=== PATIENT | female | born 1975 | race Caucasian/White ===

== ENCOUNTER 2016-07-17 09:46 | Emergency (ER) | payer MEDICAID, OTHER ==
--- NOTE | 2016-07-17 10:36 | REP ---
Clinical: Chest pain . Comparison: None . Findings: The mediastinum and cardiac silhouette are stable and within normal limits for portable technique. The lung reyes are clear without acute consolidation, effusion, or pneumothorax. Skeletal structures are intact. Impression: Normal portable chest x-ray Signed by Derek Wang MD 07/17/2016 10:28 A
[2016-07-17 10:52] LABS: BASO # 0.1 K/mm3 (0.0-0.2); BASO % 0.8 % (0.0-1.0); EOS # 0.1 K/mm3 (0.0-0.50); EOS % 1.4 % (0.0-3.0); LARGE UNSTAINED CELL # 0.1 K/mm3 (0.0-0.4); LARGE UNSTAINED CELL % 1.1 % (0.0-4.0); LYMPH # 1.7 K/mm3 (1.5-4.5); LYMPH % 21.7 % (24.0-44.0); MEAN CORPUSCULAR HEMOGLOBIN 21.8 pg (27.0-33.0); MEAN CORPUSCULAR HGB CONC 30.2 g/dl (32.0-36.5); MEAN CORPUSCULAR VOLUME 72.1 fl (80.0-96.0); MONO # 0.4 K/mm3 (0.0-0.8); MONO % 5.3 % (0.0-5.0); NEUTROPHILS # 5.3 K/mm3 (1.8-7.7); NEUTROPHILS % 69.8 % (36.0-66.0); PLATELET COUNT, AUTOMATED 243 k/mm3 (150-450); RED CELL DISTRIBUTION WIDTH 17.6 % (11.5-14.5); WHITE BLOOD COUNT 7.6 K/mm3 (4.0-10.0)
[2016-07-17 11:02] LABS: ADD MORPHOLOGY? YES
[2016-07-17 11:03] LABS: ALBUMIN 3.4 GM/DL (3.2-5.2); ALBUMIN/GLOBULIN RATIO 0.94 (1.00-1.93); ALKALINE PHOSPHATASE 93 U/L (45-117); ALT/SGPT 26 U/L (12-78); ANION GAP 10 MEQ/L (8-16); AST/SGOT 23 U/L (15-37); BILIRUBIN,DIRECT 0.1 MG/DL (0.0-0.2); BILIRUBIN,TOTAL 0.6 MG/DL (0.2-1.0); BLOOD UREA NITROGEN 16 MG/DL (7-18); CALCIUM LEVEL 8.8 MG/DL (8.5-10.1); CARBON DIOXIDE LEVEL 26 MEQ/L (21-32); CHLORIDE LEVEL 107 MEQ/L (98-107); CREATININE FOR GFR 0.64 MG/DL (0.55-1.02); GLOMERULAR FILTRATION RATE > 60.0 (>58); GLUCOSE, FASTING 114 MG/DL (70-105); POTASSIUM SERUM 4.6 MEQ/L (3.5-5.1); SODIUM LEVEL 143 MEQ/L (136-145)
[2016-07-17 11:05] LABS: ANISOCYTOSIS 1+; HYPOCHROMASIA 3+; MICROCYTOSIS 2+
--- NOTE | 2016-07-17 13:02 | EDDOCDS ---
Nurse's Notes [facility] Name: Rachelle Moran Age: 41 yrs Sex: Female : 1975 Arrival Date: 07/17/2016 Time: 09:46 Bed 10 Private MD: Diagnosis: Epilepsy and recurrent seizures Presentation: 07/17 09:48 Presenting complaint: EMS states: states was in break room at work, noticed some slight ml6 shaking and that she became rigid, states that she was AAOx3 when EMS arrived. Adult Sepsis Screening: The patient does not have new or worsening altered mentation. Patient's respiratory rate is less than 22. Systolic blood pressure is greater than 100. Patient has a qSOFA score of 0- Negative Sepsis Screen. 09:51 Presenting complaint: EMS states: Patient at work, staff called EMS for possible js13 seizure due to patient going rigid and shaking. Suicide/Homicide risk assessment- the patient denies having any suicidal and/or homicidal ideations and does not present with any other emotional, behavioral or mental health complaints. 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 Transition of care: patient was not received from another setting of care. Care prior to arrival: See EMS report. IV initiated. Glucose check. 160. 09:51 Acuity: DAYO Level 3 js13 09:51 Method Of Arrival: Ambulance js13 Triage Assessment: 09:51 General: Appears in no apparent distress, Behavior is cooperative. Pain: Denies pain. js13 Pt Declines HIV testing. Neurological: Level of Consciousness is awake, confused. Cardiovascular: Rhythm is sinus rhythm Chest pain is denied. Respiratory: Airway is patent Respiratory effort is even, unlabored, Respiratory pattern is regular, symmetrical. Derm: Skin is pink, warm & dry. 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 none - PMHx: Seizures; - PSHx: none; - Social history: No barriers to communication noted, The patient speaks fluent Wallisian, Smoking status: Patient states was never smoker of tobacco. - Family history: Not pertinent. - : The pt / caregiver states he / she is not on anticoagulants. Home medication list is obtained from the patient. - Exposure Risk Screening:: None identified. Screenin:54 Screening information is obtained from the patient. Fall risk: At risk due to apparent js13 cognitive impairment. Assistance ADL's: requires no assistance with activities of daily living. Abuse/DV Screen: The patient / caregiver reports he/she is: not in a situation that causes fear, pain or injury. Nutritional screening: No deficits noted. Advance Directives: There is no active DNR order. home support is adequate. Assessment: 09:56 General: Appears in no apparent distress, Behavior is appropriate for age, cooperative. js13 Pain: Denies pain. Neurological: Level of Consciousness is awake. Cardiovascular: Rhythm is sinus rhythm Chest pain is denied. Respiratory: Airway is patent Respiratory effort is even, unlabored, Respiratory pattern is regular, symmetrical. Derm: Skin is pink, warm & dry. 11:38 General: Appears in no apparent distress, Behavior is appropriate for age, cooperative. mb9 Pain: Denies pain. Respiratory: Airway is patent Respiratory effort is even, unlabored. 12:59 General: Appears in no apparent distress, Behavior is appropriate for age, cooperative. js13 Pain: Denies pain. Neurological: Level of Consciousness is awake, alert. Respiratory: Airway is patent Respiratory effort is even, unlabored, Respiratory pattern is regular, symmetrical. Derm: Skin is pink, warm & dry. Vital Signs: 09:56 Weight 131.54 kg (R); Height 5 ft. 6 in. (167.64 cm) (R); Pain 0/10; ml6 10:03 BP 172 / 100 RA Supine (man/lg); Pulse 83; Resp 18; Temp 98.6; Pulse Ox 99% ; Pain 0/10;jlf 11:15 Pulse 82 MON; mb9 11:15 BP 190 / 107 (auto/); mb9 11:26 Pulse 74 MON; Pulse Ox 99% ; mb9 11:26 BP 191 / 95 (auto/); mb9 11:37 Pulse 74 MON; Pulse Ox 99% ; mb9 11:37 BP 174 / 88 (auto/); mb9 11:56 BP 171 / 75 (auto/); js13 11:56 Pulse 70 MON; Pulse Ox 98% ; js13 12:26 BP 160 / 84 (auto/); js13 12:26 Pulse 76 MON; Resp 18; Temp 98.4(O); Pulse Ox 98% ; Pain 0/10; js13 09:56 Body Mass Index 46.81 (131.54 kg, 167.64 cm) ml6 Vitals: 09:51 Log In Time N/A - ambulance arrival. js13 ED Course: 09:47 Patient visited by Luli Lynch PCA. ar3 09:47 Brea Giles,RN is Primary Nurse. ar3 09:47 Patient moved to Waiting ar3 09:47 Patient moved to 10 ar3 09:53 Triage Initiated js13 09:54 The patient / caregiver is instructed regarding the plan of care and ED course. Seizure js13 precautions initiated. 09:54 Maintain field IV. Dressing intact. Good blood return noted. Site clean & dry. Gauge & js13 site: 20 gauge LAC. No procedures done that require assistance. 09:56 Patient visited by Brea Giles RN. js13 09:59 Cecilia Valverde MD is Attending Physician. fg 09:59 Patient visited by Cecilia Valverde MD. fg 10:04 Patient visited by Galdino Aguilar PCA. jlf 10:12 EKG done. (by ED staff). Reviewed by Cecilia Valverde MD. jlf 10:14 Patient visited by Galdino Aguilar PCA. jlf 10:15 Patient visited by Galdino Aguilar PCA. jlf 10:51 Patient visited by Galdino Aguilar PCA. jlf 10:55 Chest, 1 View Returned. EDMS 11:24 [facility] Payment Agreement was scanned into [employer] and attached to record. jp5 11:27 Patient visited by Galdino Aguilar PCA. jlf 12:26 Discontinued IV lock intact, bleeding controlled, pressure dressing applied, No js13 redness/swelling at site. 12:33 Patient visited by Cecilia Valverde MD. fg 12:33 [facility] is Referral Physician. fg 12:34 Jennifer George is Referral Physician. fg Order Results: Lab Order: Acetaminophen Level; SPEC'M 07/17/16 10:22 Test: ACETAMINOPHEN LEVEL; Value: < 2.0; Range: 10.0-30.0; Abnormal: Below low normal; Units: UG/ML; Status: F Lab Order: CBC with Diff; SPEC'M 07/17/16 10:22 Test: WHITE BLOOD COUNT; Value: 7.6; Range: 4.0-10.0; Units: K/mm3; Status: F Test: RED BLOOD COUNT; Value: 4.32; Range: 4.00-5.40; Units: M/mm3; Status: F Test: HEMOGLOBIN; Value: 9.4; Range: 12.0-16.0; Abnormal: Below low normal; Units: g/dl; Status: F Test: HEMATOCRIT; Value: 31.2; Range: 36.0-47.0; Abnormal: Below low normal; Units: %; Status: F Test: MEAN CORPUSCULAR VOLUME; Value: 72.1; Range: 80.0-96.0; Abnormal: Below low normal; Units: fl; Status: F Test: MEAN CORPUSCULAR HEMOGLOBIN; Value: 21.8; Range: 27.0-33.0; Abnormal: Below low normal; Units: pg; Status: F Test: MEAN CORPUSCULAR HGB CONC; Value: 30.2; Range: 32.0-36.5; Abnormal: Below low normal; Units: g/dl; Status: F Test: RED CELL DISTRIBUTION WIDTH; Value: 17.6; Range: 11.5-14.5; Abnormal: Above high normal; Units: %; Status: F Test: PLATELET COUNT, AUTOMATED; Value: 243; Range: 150-450; Units: k/mm3; Status: F Test: NEUTROPHILS %; Value: 69.8; Range: 36.0-66.0; Abnormal: Above high normal; Units: %; Status: F Test: LYMPH %; Value: 21.7; Range: 24.0-44.0; Abnormal: Below low normal; Units: %; Status: F Test: MONO %; Value: 5.3; Range: 0.0-5.0; Abnormal: Above high normal; Units: %; Status: F Test: EOS %; Value: 1.4; Range: 0.0-3.0; Units: %; Status: F Test: BASO %; Value: 0.8; Range: 0.0-1.0; Units: %; Status: F Test: LARGE UNSTAINED CELL %; Value: 1.1; Range: 0.0-4.0; Units: %; Status: F Test: NEUTROPHILS #; Value: 5.3; Range: 1.8-7.7; Units: K/mm3; Status: F Test: LYMPH #; Value: 1.7; Range: 1.5-4.5; Units: K/mm3; Status: F Test: MONO #; Value: 0.4; Range: 0.0-0.8; Units: K/mm3; Status: F Test: EOS #; Value: 0.1; Range: 0.0-0.50; Units: K/mm3; Status: F Test: BASO #; Value: 0.1; Range: 0.0-0.2; Units: K/mm3; Status: F Test: LARGE UNSTAINED CELL #; Value: 0.1; Range: 0.0-0.4; Units: K/mm3; Status: F Lab Order: Liver Profile; SPEC'M 07/17/16 10:22 Test: AST/SGOT; Value: 23; Range: 15-37; Units: U/L; Status: F Test: ALT/SGPT; Value: 26; Range: 12-78; Units: U/L; Status: F Test: ALKALINE PHOSPHATASE; Value: 93; Range: 45-117; Units: U/L; Status: F Test: BILIRUBIN,TOTAL; Value: 0.6; Range: 0.2-1.0; Units: MG/DL; Status: F Test: BILIRUBIN,DIRECT; Value: 0.1; Range: 0.0-0.2; Units: MG/DL; Status: F Test: TOTAL PROTEIN; Value: 7.0; Range: 6.4-8.2; Units: GM/DL; Status: F Test: ALBUMIN; Value: 3.4; Range: 3.2-5.2; Units: GM/DL; Status: F Test: ALBUMIN/GLOBULIN RATIO; Value: 0.94; Range: 1.00-1.93; Abnormal: Below low normal; Status: F Lab Order: MED Profile; SPEC'M 07/17/16 10:22 Test: GLUCOSE, FASTING; Value: 114; Range: 70-105; Abnormal: Above high normal; Units: MG/DL; Status: F Test: BLOOD UREA NITROGEN; Value: 16; Range: 7-18; Units: MG/DL; Status: F Test: CREATININE FOR GFR; Value: 0.64; Range: 0.55-1.02; Units: MG/DL; Status: F Test: GLOMERULAR FILTRATION RATE; Value: > 60.0; Range: >58; Status: F Test: SODIUM LEVEL; Value: 143; Range: 136-145; Units: MEQ/L; Status: F Test: POTASSIUM SERUM; Value: 4.6; Range: 3.5-5.1; Units: MEQ/L; Status: F Test: CHLORIDE LEVEL; Value: 107; Range: 98-107; Units: MEQ/L; Status: F Test: CARBON DIOXIDE LEVEL; Value: 26; Range: 21-32; Units: MEQ/L; Status: F Test: ANION GAP; Value: 10; Range: 8-16; Units: MEQ/L; Status: F Test: CALCIUM LEVEL; Value: 8.8; Range: 8.5-10.1; Units: MG/DL; Status: F Test Note: ; Units are mL/min/1.73 m2 Chronic Kidney Disease Staging per NKF: Stage I & II GFR >=60 Normal to Mildly Decreased Stage III GFR 30-59 Moderately Decreased Stage IV GFR 15-29 Severely Decreased Stage V GFR <15 Very Little GFR Left ESRD GFR <15 on FLAT SURFACER JEWEL Lab Order: Salicylate Level; SPEC'M 07/17/16 10:22 Test: SALICYLATE LEVEL; Value: < 1.7; Range: 5.0-30.0; Abnormal: Below low normal; Units: MG/DL; Status: F Lab Order: Thyroid Stimulating Hormone; SPEC'M 07/17/16 10:22 Test: THYROID STIMULATING HORMONE; Value: 2.060; Range: 0.358-3.740; Units: uIU/ML; Status: F Lab Order: RBC MORPH PROF NO CHARGE; SPEC'M 07/17/16 10:22 Test: HYPOCHROMASIA; Value: 3+; Status: F Test: ANISOCYTOSIS; Value: 1+; Status: F Test: MICROCYTOSIS; Value: 2+; Status: F Test: PLATELET ESTIMATE; Value: NORMAL; Range: NORMAL; Status: F Radiology Order: Chest, 1 View Test: Chest, 1 View REASON FOR EXAMINATION: Chest Pain; Clinical: Chest pain .; ; Comparison: None .; ; Findings:; The mediastinum and cardiac silhouette are stable and within normal limits for; portable technique. The lung reyes are clear without acute consolidation,; effusion, or pneumothorax. Skeletal structures are intact.; ; Impression:; Normal portable chest x-ray; ; ; Signed by; Derek Wang MD 07/17/2016 10:28 A; Outcome: 12:26 Discharge Assessment: Patient awake, alert and oriented x 3. No cognitive and/or js13 functional deficits noted. Patient verbalized understanding of disposition instructions. patient administered narcotics - no. The following High Risk Discharge criteria are identified: None. Discharged to home ambulatory, with family. Condition: stable. Discharge instructions given to patient, Instructed on discharge instructions, follow up and referral plans. Demonstrated understanding of instructions, Pt was receptive of discharge instructions/ teaching. No special radiology studies were completed. Property :Personal belongings accompany Pt. 12:34 Discharge ordered by Provider. fg 13:01 Patient left the ED. js13 Signatures: Dispatcher [employer] EDMS Lex Stephens, RN RN ml6 Luli Lynch, CONFERENCE SERVICES DIRECTOR CONFERENCE SERVICES DIRECTOR ar3 Brea GilesRN RN js13 Galdino Aguilar, CONFERENCE SERVICES DIRECTOR CONFERENCE SERVICES DIRECTOR Dean Wilson,RN RN mb9 Shannan Ma 5 Cecilia Valverde MD MD fg MTDD
--- NOTE | 2016-07-17 13:02 | EDDOCDS ---
Physician Documentation [facility] Name: Rachelle Moran Age: 41 yrs Sex: Female : 1975 Arrival Date: 07/17/2016 Time: 09:46 Bed 10 Private MD: Disposition: 07/17/16 12:34 Discharged to Home/Self Care. Impression: Epilepsy and recurrent seizures. - Condition is Stable. - Discharge Instructions: Seizure, Adult, [id number]. - Medication Reconciliation, Local Pharmacy Hours form. - [facility] up: [facility]; When: Call to arrange an appointment; Reason: Continuance of care. Follow up: Jennifer George; When: Call to arrange an appointment; Reason: Continuance of care. - Problem is new. - Symptoms have improved. - Notes: As discussed, we would encourage you to see Dr. George, your neurologist for further follow up of your seizures. As discussed, you have agreed not to drive until you see your neurologist or are on your medications. Historical: - Allergies: no known allergies; - Home Meds: 1. none - PMHx: Seizures; - PSHx: none; - Social history: No barriers to communication noted, The patient speaks fluent [place], Smoking status: Patient states was never smoker of tobacco. - Family history: Not pertinent. - : The pt / caregiver states he / she is not on anticoagulants. Home medication list is obtained from the patient. - Exposure Risk Screening:: None identified. 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 6 in. (167.64 cm) (R); Pain 0/10; ml6 10:03 BP 172 / 100 RA Supine (man/lg); Pulse 83; Resp 18; Temp 98.6; Pulse Ox 99% ; Pain 0/10;jlf 11:15 Pulse 82 MON; mb9 11:15 BP 190 / 107 (auto/); mb9 11:26 Pulse 74 MON; Pulse Ox 99% ; mb9 11:26 BP 191 / 95 (auto/); mb9 11:37 Pulse 74 MON; Pulse Ox 99% ; mb9 11:37 BP 174 / 88 (auto/); mb9 11:56 BP 171 / 75 (auto/); js13 11:56 Pulse 70 MON; Pulse Ox 98% ; js13 12:26 BP 160 / 84 (auto/); js13 12:26 Pulse 76 MON; Resp 18; Temp 98.4(O); Pulse Ox 98% ; Pain 0/10; js13 09:56 Body Mass Index 46.81 (131.54 kg, 167.64 cm) ml6 MDM: 10:04 Teacher Selection Specialist/Pulse Ox/q 15 min VS ordered. fg 10:04 IV Saline Lock ordered. fg 10:04 Oxygen at 4L/Min NC or Home dosage ordered. fg 10:04 Rhythm Strip to chart ordered. fg 10:04 IV Saline Lock ordered. fg 10:04 Acetaminophen Level Ordered. EDMS 10:04 CBC with Diff Ordered. EDMS 10:04 Drug Eval Toxicology ED Only Ordered. EDMS 10:04 Liver Profile Ordered. EDMS 10:04 MED Profile Ordered. EDMS 10:04 Salicylate Level Ordered. EDMS 10:04 Thyroid Stimulating Hormone Ordered. EDMS 10:04 Urinalysis Ordered. EDMS 10:04 Urine Test-In Lab Ordered. EDMS 10:06 Chest, 1 View Ordered. EDMS 10:06 ECG WITH READING ER PHYS+CARDIAG ordered. EDMS 11:03 RBC MORPH PROF NO CHARGE Ordered. EDMS 11:24 [facility] Payment Agreement was scanned into [employer] and attached to record. jp5 11:24 Financial registration complete. jp5 Signatures: Dispatcher [employer] EDRI Lex Stephens, RN RN ml6 Brea GilesRN RN js13 Shannan Ma jp5 Cecilia Valverde MD MD The chart was reviewed and I authenticate all verbal orders and agree with the evaluation and treatment provided.Corrections: (The following items were deleted from the chart) 10:06 10:04 Accucheck ordered. fg js13 Attachments: 11:24 [facility] Payment Agreement jp5 MTDD
--- NOTE | 2016-07-17 18:08 | ECGEPIP ---
Stationary ECG Study 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
[2016-07-17] MEDS ORDERED: MULTIVITAMINS/MINERALS THERAP 1 TAB As Ordered ONE (21:26)
[2016-07-17] MEDS ORDERED: HEPARIN SOD (PORCINE) 5000 UNITS/ML VIAL As Ordered ONE (21:27)
--- NOTE | 2016-07-19 14:02 | EDDOCDS ---
Nurse's Notes [facility] Name: True Fernandez Age: 41 yrs Sex: Female : 1975 Arrival Date: 07/17/2016 Time: 09:46 Bed 10 Private MD: Diagnosis: Epilepsy and recurrent seizures Presentation: 07/17 09:48 Presenting complaint: EMS states: states was in break room at work, noticed some slight ml6 shaking and that she became rigid, states that she was AAOx3 when EMS arrived. Adult Sepsis Screening: The patient does not have new or worsening altered mentation. Patient's respiratory rate is less than 22. Systolic blood pressure is greater than 100. Patient has a qSOFA score of 0- Negative Sepsis Screen. 09:51 Presenting complaint: EMS states: Patient at work, staff called EMS for possible js13 seizure due to patient going rigid and shaking. Suicide/Homicide risk assessment- the patient denies having any suicidal and/or homicidal ideations and does not present with any other emotional, behavioral or mental health complaints. 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 Transition of care: patient was not received from another setting of care. Care prior to arrival: See EMS report. IV initiated. Glucose check. 160. 09:51 Acuity: DAYO Level 3 js13 09:51 Method Of Arrival: Ambulance js13 Triage Assessment: 09:51 General: Appears in no apparent distress, Behavior is cooperative. Pain: Denies pain. js13 Pt Declines HIV testing. Neurological: Level of Consciousness is awake, confused. Cardiovascular: Rhythm is sinus rhythm Chest pain is denied. Respiratory: Airway is patent Respiratory effort is even, unlabored, Respiratory pattern is regular, symmetrical. Derm: Skin is pink, warm & dry. FAMILY THERAPIST: 09:56 LMP 06/22/2016 ml6 Historical: - Allergies: no known allergies; - Home Meds: 1. none - PMHx: Seizures; - PSHx: none; - Social history: No barriers to communication noted, The patient speaks fluent [place], Smoking status: Patient states was never smoker of tobacco. - Family history: Not pertinent. - : The pt / caregiver states he / she is not on anticoagulants. Home medication list is obtained from the patient. - Exposure Risk Screening:: None identified. Screenin:54 Screening information is obtained from the patient. Fall risk: At risk due to apparent js13 cognitive impairment. Assistance ADL's: requires no assistance with activities of daily living. Abuse/DV Screen: The patient / caregiver reports he/she is: not in a situation that causes fear, pain or injury. Nutritional screening: No deficits noted. Advance Directives: There is no active DNR order. home support is adequate. Assessment: 09:56 General: Appears in no apparent distress, Behavior is appropriate for age, cooperative. js13 Pain: Denies pain. Neurological: Level of Consciousness is awake. Cardiovascular: Rhythm is sinus rhythm Chest pain is denied. Respiratory: Airway is patent Respiratory effort is even, unlabored, Respiratory pattern is regular, symmetrical. Derm: Skin is pink, warm & dry. 11:38 General: Appears in no apparent distress, Behavior is appropriate for age, cooperative. mb9 Pain: Denies pain. Respiratory: Airway is patent Respiratory effort is even, unlabored. 12:59 General: Appears in no apparent distress, Behavior is appropriate for age, cooperative. js13 Pain: Denies pain. Neurological: Level of Consciousness is awake, alert. Respiratory: Airway is patent Respiratory effort is even, unlabored, Respiratory pattern is regular, symmetrical. Derm: Skin is pink, warm & dry. Vital Signs: 09:56 Weight 131.54 kg (R); Height 5 ft. 6 in. (167.64 cm) (R); Pain 0/10; ml6 10:03 BP 172 / 100 RA Supine (man/lg); Pulse 83; Resp 18; Temp 98.6; Pulse Ox 99% ; Pain 0/10;jlf 11:15 Pulse 82 MON; mb9 11:15 BP 190 / 107 (auto/); mb9 11:26 Pulse 74 MON; Pulse Ox 99% ; mb9 11:26 BP 191 / 95 (auto/); mb9 11:37 Pulse 74 MON; Pulse Ox 99% ; mb9 11:37 BP 174 / 88 (auto/); mb9 11:56 BP 171 / 75 (auto/); js13 11:56 Pulse 70 MON; Pulse Ox 98% ; js13 12:26 BP 160 / 84 (auto/); js13 12:26 Pulse 76 MON; Resp 18; Temp 98.4(O); Pulse Ox 98% ; Pain 0/10; js13 09:56 Body Mass Index 46.81 (131.54 kg, 167.64 cm) ml6 Vitals: 09:51 Log In Time N/A - ambulance arrival. js13 ED Course: 09:47 Patient visited by Luli Lynch PCA. ar3 09:47 Brea Giles,RN is Primary Nurse. ar3 09:47 Patient moved to Waiting ar3 09:47 Patient moved to 10 ar3 09:53 Triage Initiated js13 09:54 The patient / caregiver is instructed regarding the plan of care and ED course. Seizure js13 precautions initiated. 09:54 Maintain field IV. Dressing intact. Good blood return noted. Site clean & dry. Gauge & js13 site: 20 gauge LAC. No procedures done that require assistance. 09:56 Patient visited by Brea Giles RN. js13 09:59 Cecilia Valverde MD is Attending Physician. fg 09:59 Patient visited by Cecilia Valverde MD. fg 10:04 Patient visited by Galdino Aguilar PCA. jlf 10:12 EKG done. (by ED staff). Reviewed by Cecilia Valverde MD. jlf 10:14 Patient visited by Galdino gAuilar PCA. jlf 10:15 Patient visited by Galdino Aguilar PCA. jlf 10:51 Patient visited by Galdino Aguilar PCA. jlf 10:55 Chest, 1 View Returned. EDMS 11:24 [facility] Payment Agreement was scanned into [employer] and attached to record. jp5 11:27 Patient visited by Galdino Aguilar PCA. jlf 12:26 Discontinued IV lock intact, bleeding controlled, pressure dressing applied, No js13 redness/swelling at site. 12:33 Patient visited by Cecilia Valverde MD. fg 12:33 [facility] is Referral Physician. fg 12:34 Jennifer George is Referral Physician. fg 13:44 Patient name changed from True\S\A\S\Sycamore\S\ to True\S\Lucie\S\Sycamore. EDMS 16:58 T-Sheet-- Draft Copy was scanned into [employer] and attached to record. klr 18:33 EKG-ADULT Returned. EDMS 07/18 11:43 ECG/EKG was scanned into [employer] and attached to record. gb Order Results: Lab Order: Acetaminophen Level; SPEC'M 07/17/16 10:22 Test: ACETAMINOPHEN LEVEL; Value: < 2.0; Range: 10.0-30.0; Abnormal: Below low normal; Units: UG/ML; Status: F Lab Order: CBC with Diff; SPEC'M 07/17/16 10:22 Test: WHITE BLOOD COUNT; Value: 7.6; Range: 4.0-10.0; Units: K/mm3; Status: F Test: RED BLOOD COUNT; Value: 4.32; Range: 4.00-5.40; Units: M/mm3; Status: F Test: HEMOGLOBIN; Value: 9.4; Range: 12.0-16.0; Abnormal: Below low normal; Units: g/dl; Status: F Test: HEMATOCRIT; Value: 31.2; Range: 36.0-47.0; Abnormal: Below low normal; Units: %; Status: F Test: MEAN CORPUSCULAR VOLUME; Value: 72.1; Range: 80.0-96.0; Abnormal: Below low normal; Units: fl; Status: F Test: MEAN CORPUSCULAR HEMOGLOBIN; Value: 21.8; Range: 27.0-33.0; Abnormal: Below low normal; Units: pg; Status: F Test: MEAN CORPUSCULAR HGB CONC; Value: 30.2; Range: 32.0-36.5; Abnormal: Below low normal; Units: g/dl; Status: F Test: RED CELL DISTRIBUTION WIDTH; Value: 17.6; Range: 11.5-14.5; Abnormal: Above high normal; Units: %; Status: F Test: PLATELET COUNT, AUTOMATED; Value: 243; Range: 150-450; Units: k/mm3; Status: F Test: NEUTROPHILS %; Value: 69.8; Range: 36.0-66.0; Abnormal: Above high normal; Units: %; Status: F Test: LYMPH %; Value: 21.7; Range: 24.0-44.0; Abnormal: Below low normal; Units: %; Status: F Test: MONO %; Value: 5.3; Range: 0.0-5.0; Abnormal: Above high normal; Units: %; Status: F Test: EOS %; Value: 1.4; Range: 0.0-3.0; Units: %; Status: F Test: BASO %; Value: 0.8; Range: 0.0-1.0; Units: %; Status: F Test: LARGE UNSTAINED CELL %; Value: 1.1; Range: 0.0-4.0; Units: %; Status: F Test: NEUTROPHILS #; Value: 5.3; Range: 1.8-7.7; Units: K/mm3; Status: F Test: LYMPH #; Value: 1.7; Range: 1.5-4.5; Units: K/mm3; Status: F Test: MONO #; Value: 0.4; Range: 0.0-0.8; Units: K/mm3; Status: F Test: EOS #; Value: 0.1; Range: 0.0-0.50; Units: K/mm3; Status: F Test: BASO #; Value: 0.1; Range: 0.0-0.2; Units: K/mm3; Status: F Test: LARGE UNSTAINED CELL #; Value: 0.1; Range: 0.0-0.4; Units: K/mm3; Status: F Lab Order: Liver Profile; SPEC'M 07/17/16 10:22 Test: AST/SGOT; Value: 23; Range: 15-37; Units: U/L; Status: F Test: ALT/SGPT; Value: 26; Range: 12-78; Units: U/L; Status: F Test: ALKALINE PHOSPHATASE; Value: 93; Range: 45-117; Units: U/L; Status: F Test: BILIRUBIN,TOTAL; Value: 0.6; Range: 0.2-1.0; Units: MG/DL; Status: F Test: BILIRUBIN,DIRECT; Value: 0.1; Range: 0.0-0.2; Units: MG/DL; Status: F Test: TOTAL PROTEIN; Value: 7.0; Range: 6.4-8.2; Units: GM/DL; Status: F Test: ALBUMIN; Value: 3.4; Range: 3.2-5.2; Units: GM/DL; Status: F Test: ALBUMIN/GLOBULIN RATIO; Value: 0.94; Range: 1.00-1.93; Abnormal: Below low normal; Status: F Lab Order: MED Profile; SPEC07/17/16 10:22 Test: GLUCOSE, FASTING; Value: 114; Range: 70-105; Abnormal: Above high normal; Units: MG/DL; Status: F Test: BLOOD UREA NITROGEN; Value: 16; Range: 7-18; Units: MG/DL; Status: F Test: CREATININE FOR GFR; Value: 0.64; Range: 0.55-1.02; Units: MG/DL; Status: F Test: GLOMERULAR FILTRATION RATE; Value: > 60.0; Range: >58; Status: F Test: SODIUM LEVEL; Value: 143; Range: 136-145; Units: MEQ/L; Status: F Test: POTASSIUM SERUM; Value: 4.6; Range: 3.5-5.1; Units: MEQ/L; Status: F Test: CHLORIDE LEVEL; Value: 107; Range: 98-107; Units: MEQ/L; Status: F Test: CARBON DIOXIDE LEVEL; Value: 26; Range: 21-32; Units: MEQ/L; Status: F Test: ANION GAP; Value: 10; Range: 8-16; Units: MEQ/L; Status: F Test: CALCIUM LEVEL; Value: 8.8; Range: 8.5-10.1; Units: MG/DL; Status: F Test Note: ; Units are mL/min/1.73 m2 Chronic Kidney Disease Staging per NKF: Stage I & II GFR >=60 Normal to Mildly Decreased Stage III GFR 30-59 Moderately Decreased Stage IV GFR 15-29 Severely Decreased Stage V GFR <15 Very Little GFR Left ESRD GFR <15 on CHIMNEY BUILDER HELPER Lab Order: Salicylate Level; 07/17/16 10:22 Test: SALICYLATE LEVEL; Value: < 1.7; Range: 5.0-30.0; Abnormal: Below low normal; Units: MG/DL; Status: F Lab Order: Thyroid Stimulating Hormone; 07/17/16 10:22 Test: THYROID STIMULATING HORMONE; Value: 2.060; Range: 0.358-3.740; Units: uIU/ML; Status: F Lab Order: RBC MORPH PROF NO CHARGE; 07/17/16 10:22 Test: HYPOCHROMASIA; Value: 3+; Status: F Test: ANISOCYTOSIS; Value: 1+; Status: F Test: MICROCYTOSIS; Value: 2+; Status: F Test: PLATELET ESTIMATE; Value: NORMAL; Range: NORMAL; Status: F Radiology Order: Chest, 1 View Test: Chest, 1 View REASON FOR EXAMINATION: Chest Pain; Clinical: Chest pain .; ; Comparison: None .; ; Findings:; The mediastinum and cardiac silhouette are stable and within normal limits for; portable technique. The lung reyes are clear without acute consolidation,; effusion, or pneumothorax. Skeletal structures are intact.; ; Impression:; Normal portable chest x-ray; ; ; Signed by; Derek Wang MD 07/17/2016 10:28 A; Radiology Order: EKG-ADULT Test: EKG-ADULT REASON FOR EXAMINATION: Chest Pain; Stationary ECG Study; [facility] - ED; ; Test Date: 2016-07-17; Pat Name: TRUE FERNANDEZ Department:; Room: -; Gender: F Kelp Gatherer: ; : 1975 Requested By: CECILIA Gunderson; Order Number: [id number] Reading MD: Bravo Ramirez; Measurements; Intervals Imogene; Rate: 77 P: 42; MN: 158 QRS: 46; QRSD: 93 T: 21; QT: 367; QTc: 417; Interpretive Statements; SINUS RHYTHM; NONSPECIFIC T WAVE ABNORMALITY; SIMILAR TO 12/08/13; Electronically Signed On 07-17-2016 18:07:56 EST by Bravo Ramirez; Outcome: 07/17 12:26 Discharge Assessment: Patient awake, alert and oriented x 3. No cognitive and/or js13 functional deficits noted. Patient verbalized understanding of disposition instructions. patient administered narcotics - no. The following High Risk Discharge criteria are identified: None. Discharged to home ambulatory, with family. Condition: stable. Discharge instructions given to patient, Instructed on discharge instructions, follow up and referral plans. Demonstrated understanding of instructions, Pt was receptive of discharge instructions/ teaching. No special radiology studies were completed. Property :Personal belongings accompany Pt. 12:34 Discharge ordered by Provider. fg 13:01 Patient left the ED. js13 Signatures: Dispatcher [employer] EDMS Cyn Perkins, Lex Horton RN RN ml6 Luli Lynch, WAREHOUSE RECEIVING SUPERVISOR WAREHOUSE RECEIVING SUPERVISOR ar3 Brea Giles,RN RN js13 Galdino Aguilar, WAREHOUSE RECEIVING SUPERVISOR WAREHOUSE RECEIVING SUPERVISOR jlf Dean Wills,RN RN mb9 Shannan Ma jp5 Cecilia Valverde MD MD Negrita Barrett Chart Complete MTDD
--- NOTE | 2016-07-19 14:02 | EDDOCDS ---
Physician Documentation [facility] Name: Rachelle Moran Age: 41 yrs Sex: Female : 1975 Arrival Date: 07/17/2016 Time: 09:46 Bed 10 Private MD: Disposition: 07/17/16 12:34 Discharged to Home/Self Care. Impression: Epilepsy and recurrent seizures. - Condition is Stable. - Discharge Instructions: Seizure, Adult, [id number]. - Medication Reconciliation, Local Pharmacy Hours form. - [facility]: [facility]; When: Call to arrange an appointment; Reason: Continuance of care. Follow up: Jennifer eGorge; When: Call to arrange an appointment; Reason: Continuance of care. - Problem is new. - Symptoms have improved. - Notes: As discussed, we would encourage you to see Dr. George, your neurologist for further follow up of your seizures. As discussed, you have agreed not to drive until you see your neurologist or are on your medications. Historical: - Allergies: no known allergies; - Home Meds: 1. none - PMHx: Seizures; - PSHx: none; - Social history: No barriers to communication noted, The patient speaks fluent Sammarinese, Smoking status: Patient states was never smoker of tobacco. - Family history: Not pertinent. - : The pt / caregiver states he / she is not on anticoagulants. Home medication list is obtained from the patient. - Exposure Risk Screening:: None identified. SUPERVISOR ELECTRIC MOTOR TESTING: 07/17 09:56 LMP 06/22/2016 ml6 Vital Signs: 09:56 Weight 131.54 kg / 290 lbs (R); Height 5 ft. 6 in. (167.64 cm) (R); Pain 0/10; ml6 10:03 BP 172 / 100 RA Supine (man/lg); Pulse 83; Resp 18; Temp 98.6; Pulse Ox 99% ; Pain 0/10;jlf 11:15 Pulse 82 MON; mb9 11:15 BP 190 / 107 (auto/); mb9 11:26 Pulse 74 MON; Pulse Ox 99% ; mb9 11:26 BP 191 / 95 (auto/); mb9 11:37 Pulse 74 MON; Pulse Ox 99% ; mb9 11:37 BP 174 / 88 (auto/); mb9 11:56 BP 171 / 75 (auto/); js13 11:56 Pulse 70 MON; Pulse Ox 98% ; js13 12:26 BP 160 / 84 (auto/); js13 12:26 Pulse 76 MON; Resp 18; Temp 98.4(O); Pulse Ox 98% ; Pain 0/10; js13 09:56 Body Mass Index 46.81 (131.54 kg, 167.64 cm) ml6 MDM: 10:04 Kiln Fireman/Pulse Ox/q 15 min VS ordered. fg 10:04 IV Saline Lock ordered. fg 10:04 Oxygen at 4L/Min NC or Home dosage ordered. fg 10:04 Rhythm Strip to chart ordered. fg 10:04 IV Saline Lock ordered. fg 10:04 Acetaminophen Level Ordered. EDMS 10:04 CBC with Diff Ordered. EDMS 10:04 Drug Eval Toxicology ED Only Ordered. EDMS 10:04 Liver Profile Ordered. EDMS 10:04 MED Profile Ordered. EDMS 10:04 Salicylate Level Ordered. EDMS 10:04 Thyroid Stimulating Hormone Ordered. EDMS 10:04 Urinalysis Ordered. EDMS 10:04 Urine Test-In Lab Ordered. EDMS 10:06 Chest, 1 View Ordered. EDMS 10:06 ECG WITH READING ER PHYS+CARDIAG ordered. EDMS 11:03 RBC MORPH PROF NO CHARGE Ordered. EDMS 11:24 [facility] Payment Agreement was scanned into [employer] and attached to record. 5 11:24 Financial registration complete. [facility] 16:58 T-Sheet-- Draft Copy was scanned into [employer] and attached to record. [facility] 07/18 11:43 ECG/EKG was scanned into [employer] and attached to record. gb Signatures: Dispatcher [employer] EDMS Cyn Perkins, Reg Reg gb Lex Stephens, RN RN ml6 Brea Giles,RN RN js13 Shannan Ma jp5 Cecilia Valverde MD MD fg Redder, Kathie klr The chart was reviewed and I authenticate all verbal orders and agree with the evaluation and treatment provided.Corrections: (The following items were deleted from the chart) 07/17 10:06 10:04 Accucheck ordered. fg js13 Attachments: 11:24 [facility] Payment Agreement 5 16:58 T-Sheet-- Draft Copy klr 07/18 11:43 ECG/EKG gb Chart Complete MTDD
--- NOTE | 2016-07-19 14:02 | EDDOCDS ---
Physician Documentation [facility] Name: Rachelle Moran Age: 41 yrs Sex: Female : 1975 Arrival Date: 07/17/2016 Time: 09:46 Bed 10 Private MD: Disposition: 07/17/16 12:34 Discharged to Home/Self Care. Impression: Epilepsy and recurrent seizures. - Condition is Stable. - Discharge Instructions: Seizure, Adult, [id number]. - Medication Reconciliation, Local Pharmacy Hours form. - [facility] up[facility]; When: Call to arrange an appointment; Reason: Continuance of care. Follow up: Jennifer George; When: Call to arrange an appointment; Reason: Continuance of care. - Problem is new. - Symptoms have improved. - Notes: As discussed, we would encourage you to see Dr. George, your neurologist for further follow up of your seizures. As discussed, you have agreed not to drive until you see your neurologist or are on your medications. Historical: - Allergies: no known allergies; - Home Meds: 1. none - PMHx: Seizures; - PSHx: none; - Social history: No barriers to communication noted, The patient speaks fluent Belarusian, Smoking status: Patient states was never smoker of tobacco. - Family history: Not pertinent. - : The pt / caregiver states he / she is not on anticoagulants. Home medication list is obtained from the patient. - Exposure Risk Screening:: None identified. TREER: 07/17 09:56 LMP 06/22/2016 ml6 Vital Signs: 09:56 Weight 131.54 kg / 290 lbs (R); Height 5 ft. 6 in. (167.64 cm) (R); Pain 0/10; ml6 10:03 BP 172 / 100 RA Supine (man/lg); Pulse 83; Resp 18; Temp 98.6; Pulse Ox 99% ; Pain 0/10;jlf 11:15 Pulse 82 MON; mb9 11:15 BP 190 / 107 (auto/); mb9 11:26 Pulse 74 MON; Pulse Ox 99% ; mb9 11:26 BP 191 / 95 (auto/); mb9 11:37 Pulse 74 MON; Pulse Ox 99% ; mb9 11:37 BP 174 / 88 (auto/); mb9 11:56 BP 171 / 75 (auto/); js13 11:56 Pulse 70 MON; Pulse Ox 98% ; js13 12:26 BP 160 / 84 (auto/); js13 12:26 Pulse 76 MON; Resp 18; Temp 98.4(O); Pulse Ox 98% ; Pain 0/10; js13 09:56 Body Mass Index 46.81 (131.54 kg, 167.64 cm) ml6 MDM: 10:04 Cosmetic Sales Consultant/Pulse Ox/q 15 min VS ordered. fg 10:04 IV Saline Lock ordered. fg 10:04 Oxygen at 4L/Min NC or Home dosage ordered. fg 10:04 Rhythm Strip to chart ordered. fg 10:04 IV Saline Lock ordered. fg 10:04 Acetaminophen Level Ordered. EDMS 10:04 CBC with Diff Ordered. EDMS 10:04 Drug Eval Toxicology ED Only Ordered. EDMS 10:04 Liver Profile Ordered. EDMS 10:04 MED Profile Ordered. EDMS 10:04 Salicylate Level Ordered. EDMS 10:04 Thyroid Stimulating Hormone Ordered. EDMS 10:04 Urinalysis Ordered. EDMS 10:04 Urine Test-In Lab Ordered. EDMS 10:06 Chest, 1 View Ordered. EDMS 10:06 ECG WITH READING ER PHYS+CARDIAG ordered. EDMS 11:03 RBC MORPH PROF NO CHARGE Ordered. EDMS 11:24 [facility] Payment Agreement was scanned into [employer] and attached to record. 5 11:24 Financial registration complete. [facility] 16:58 T-Sheet-- Draft Copy was scanned into [employer] and attached to record. [facility] 07/18 11:43 ECG/EKG was scanned into [employer] and attached to record. gb Signatures: Dispatcher [employer] EDMS Cyn Perkins, Reg Reg gb Lex Stephens, RN RN ml6 Brea Giles,RN RN js13 Shannan Ma jp5 Cecilia Valverde MD MD fg Redder, Kathie klr The chart was reviewed and I authenticate all verbal orders and agree with the evaluation and treatment provided.Corrections: (The following items were deleted from the chart) 07/17 10:06 10:04 Accucheck ordered. fg js13 Attachments: 11:24 [facility] [place] Agreement 5 16:58 T-Sheet-- Draft Copy klr 07/18 11:43 ECG/EKG gb Chart Complete MTDD
== END 2016-07-17 13:01 | disposition home or self-care (01) ==
LOC: M ED 09:46
DX: G40.909 Epilepsy, unspecified, not intractable, without status epilepticus (principal)

== ENCOUNTER 2016-09-18 09:34 | Emergency (ER) | payer OTHER ==
[~2016-09-18] VITALS: Ht 167.6 cm; Wt 135.2 kg
[2016-09-18] MEDS ORDERED: ZYRT10CA PO (09:47)
[2016-09-18 11:29] LABS: BASO % 0.8 % (0.0-1.0); EOS % 0.8 % (0.0-3.0); LARGE UNSTAINED CELL # 0.1 K/mm3 (0.0-0.4); LARGE UNSTAINED CELL % 1.8 % (0.0-4.0); LYMPH % 32.3 % (24.0-44.0); MEAN CORPUSCULAR HEMOGLOBIN 22.5 pg (27.0-33.0); MEAN CORPUSCULAR HGB CONC 30.6 g/dl (32.0-36.5); MEAN CORPUSCULAR VOLUME 73.5 fl (80.0-96.0); MONO # 0.2 K/mm3 (0.0-0.8); MONO % 3.6 % (0.0-5.0); NEUTROPHILS # 3.6 K/mm3 (1.8-7.7); NEUTROPHILS % 60.6 % (36.0-66.0); PLATELET COUNT, AUTOMATED 189 k/mm3 (150-450); RED CELL DISTRIBUTION WIDTH 17.9 % (11.5-14.5)
[2016-09-18 11:51] LABS: ALBUMIN 3.1 GM/DL (3.2-5.2); ALBUMIN/GLOBULIN RATIO 0.84 (1.00-1.93); ALKALINE PHOSPHATASE 79 U/L (45-117); ALT/SGPT 21 U/L (12-78); ANION GAP 6 MEQ/L (8-16); AST/SGOT 16 U/L (15-37); BILIRUBIN,TOTAL 0.5 MG/DL (0.2-1.0); BLOOD UREA NITROGEN 14 MG/DL (7-18); CARBON DIOXIDE LEVEL 28 MEQ/L (21-32); CHLORIDE LEVEL 107 MEQ/L (98-107); CREATININE FOR GFR 0.57 MG/DL (0.55-1.02); GLOMERULAR FILTRATION RATE > 60.0 (>58); GLUCOSE, FASTING 95 MG/DL (70-105); POTASSIUM SERUM 4.1 MEQ/L (3.5-5.1); SODIUM LEVEL 141 MEQ/L (136-145); TOTAL PROTEIN 6.8 GM/DL (6.4-8.2)
[2016-09-18 13:38] LABS: METHADONE URINE NEGATIVE (NEGATIVE)
[2016-09-18 13:52] VITALS: BP 170/85
--- NOTE | 2016-09-19 20:26 | ECGEPIP ---
Stationary ECG Study [facility] - ED Test Date: 2016-09-18 Pat Name: TRUE FERNANDEZ Department: Room: - Gender: F Prize Jacker: favian : 1975 Requested By: Mely Jasmine Order Number: [id number] Reading MD: Mely Jasmine Measurements Intervals [place] Rate: 62 P: 42 MI: 159 QRS: 60 QRSD: 94 T: 40 QT: 409 QTc: 416 Interpretive Statements SINUS RHYTHM DECREASED RATE 07/17/16 Electronically Signed On 09-19-2016 20:26:36 EDT by Mely Jasmine
== END 2016-09-18 13:53 | disposition home or self-care (01) ==
LOC: EDBD 09:34 → M ED 11:04
DX: R03.0 Elevated blood-pressure reading, without diagnosis of hypertension (principal); Z86.69 Personal history of other diseases of the nervous system and sense organs; Z79.899 Other long term (current) drug therapy

== ENCOUNTER → 2016-10-14 | Outpatient (CLI) | payer OTHER ==
[~2016-10-14] MED LIST: ZYRT10CA PO
[2016-10-14 17:11] LABS: VITAMIN B12 LEVEL 532 PG/ML (247-911)
[2016-10-14 18:05] LABS: BASO % 0.8 % (0.0-1.0); EOS # 0.1 K/mm3 (0.0-0.50); EOS % 1.4 % (0.0-3.0); LARGE UNSTAINED CELL # 0.1 K/mm3 (0.0-0.4); LARGE UNSTAINED CELL % 1.8 % (0.0-4.0); LYMPH # 2.6 K/mm3 (1.5-4.5); LYMPH % 43.6 % (24.0-44.0); MEAN CORPUSCULAR HEMOGLOBIN 23.8 pg (27.0-33.0); MEAN CORPUSCULAR HGB CONC 30.3 g/dl (32.0-36.5); MEAN CORPUSCULAR VOLUME 78.3 fl (80.0-96.0); MONO # 0.2 K/mm3 (0.0-0.8); MONO % 3.6 % (0.0-5.0); NEUTROPHILS % 48.8 % (36.0-66.0); PLATELET COUNT, AUTOMATED 256 k/mm3 (150-450); RED CELL DISTRIBUTION WIDTH 18.3 % (11.5-14.5); WHITE BLOOD COUNT 6.1 K/mm3 (4.0-10.0)
[2016-10-14 18:24] LABS: ALBUMIN 3.3 GM/DL (3.2-5.2); ALBUMIN/GLOBULIN RATIO 0.92 (1.00-1.93); ALKALINE PHOSPHATASE 76 U/L (45-117); ALT/SGPT 21 U/L (12-78); ANION GAP 6 MEQ/L (8-16); AST/SGOT 18 U/L (15-37); BILIRUBIN,TOTAL 0.6 MG/DL (0.2-1.0); BLOOD UREA NITROGEN 23 MG/DL (7-18); CALCIUM LEVEL 8.3 MG/DL (8.5-10.1); CARBON DIOXIDE LEVEL 27 MEQ/L (21-32); CHLORIDE LEVEL 107 MEQ/L (98-107); CHOLESTEROL LEVEL 251 MG/DL (<200); CREATININE FOR GFR 0.96 MG/DL (0.55-1.02); FERRITIN 3 NG/ML (8-252); FREE T4 0.86 NG/DL (0.76-1.46); GLOMERULAR FILTRATION RATE > 60.0 (>58); GLUCOSE, FASTING 98 MG/DL (70-105); MAGNESIUM LEVEL 1.7 MG/DL (1.8-2.4); PERCENT SATURATION 6.3 % (13.2-37.4); POTASSIUM SERUM 4.4 MEQ/L (3.5-5.1); SODIUM LEVEL 140 MEQ/L (136-145); TOTAL IRON BINDING CAPACITY 457 UG/DL (250-450); TOTAL PROTEIN 6.9 GM/DL (6.4-8.2); TRIGLYCERIDES LEVEL 173 MG/DL (<150)
== END ==
LOC: M WUC 10:43
PROVIDERS: ATTEND Nurse Practitioner Family
DX: I10 Essential (primary) hypertension (principal); Z13.220 Encounter for screening for lipoid disorders; D64.9 Anemia, unspecified; Z13.29 Encounter for screening for other suspected endocrine disorder; R42 Dizziness and giddiness

== ENCOUNTER → 2016-10-27 | Outpatient (CLI) | payer OTHER ==
--- NOTE | 2016-10-28 09:09 | REP ---
MR BRAIN WITHOUT CONTRAST: HISTORY: Dizziness. COMPARISON: 06/21/2005. There are no areas of abnormal signal intensity of the brain. There is no intraparenchymal hemorrhage, infarct, mass or midline shift. The sella turcica is partially empty. The ventricular system is normal in appearance. There is no extracerebral collection. Mucosal thickening is present in the maxillary sinuses. IMPRESSION: There is no intracranial lesion. Signed by Quinn Abdi MD 10/28/2016 09:32 A
== END ==
LOC: M RAD 13:42
PROVIDERS: ATTEND Nurse Practitioner Family
DX: R42 Dizziness and giddiness (principal); R56.9 Unspecified convulsions

== ENCOUNTER → 2017-01-13 | Outpatient (CLI) | payer OTHER ==
[2017-01-13 13:33] LABS: BASO % 0.8 % (0.0-1.0); EOS # 0.1 K/mm3 (0.0-0.50); EOS % 1.3 % (0.0-3.0); LARGE UNSTAINED CELL # 0.1 K/mm3 (0.0-0.4); LARGE UNSTAINED CELL % 1.6 % (0.0-4.0); LYMPH # 2.1 K/mm3 (1.5-4.5); MEAN CORPUSCULAR HEMOGLOBIN 25.8 pg (27.0-33.0); MEAN CORPUSCULAR HGB CONC 31.9 g/dl (32.0-36.5); MEAN CORPUSCULAR VOLUME 80.8 fl (80.0-96.0); MONO # 0.2 K/mm3 (0.0-0.8); MONO % 3.3 % (0.0-5.0); NEUTROPHILS % 53.9 % (36.0-66.0); PLATELET COUNT, AUTOMATED 266 k/mm3 (150-450); RED CELL DISTRIBUTION WIDTH 17.4 % (11.5-14.5); WHITE BLOOD COUNT 5.5 K/mm3 (4.0-10.0)
[2017-01-13 13:59] LABS: ANION GAP 7 MEQ/L (8-16); BLOOD UREA NITROGEN 15 MG/DL (7-18); CALCIUM LEVEL 8.8 MG/DL (8.5-10.1); CARBON DIOXIDE LEVEL 27 MEQ/L (21-32); CHLORIDE LEVEL 106 MEQ/L (98-107); CREATININE FOR GFR 0.63 MG/DL (0.55-1.02); GLOMERULAR FILTRATION RATE > 60.0 (>58); GLUCOSE, FASTING 104 MG/DL (70-105); POTASSIUM SERUM 4.5 MEQ/L (3.5-5.1); SODIUM LEVEL 140 MEQ/L (136-145)
== END ==
LOC: M WUC 09:18
PROVIDERS: ATTEND Nurse Practitioner Family
DX: D64.9 Anemia, unspecified (principal); E88.81 Metabolic syndrome and other insulin resistance

== ENCOUNTER → 2017-05-04 | Outpatient (CLI) | payer OTHER ==
[2017-05-04 13:28] LABS: ALBUMIN 3.6 GM/DL (3.2-5.2); ALBUMIN/GLOBULIN RATIO 1.13 (1.00-1.93); ALKALINE PHOSPHATASE 78 U/L (45-117); ALT/SGPT 28 U/L (12-78); ANION GAP 8 MEQ/L (8-16); AST/SGOT 17 U/L (7-37); BILIRUBIN,TOTAL 0.6 MG/DL (0.2-1.0); BLOOD UREA NITROGEN 18 MG/DL (7-18); CALCIUM LEVEL 8.9 MG/DL (8.5-10.1); CARBON DIOXIDE LEVEL 27 MEQ/L (21-32); CHLORIDE LEVEL 108 MEQ/L (98-107); CHOLESTEROL LEVEL 244 MG/DL (<200); CREATININE FOR GFR 0.64 MG/DL (0.55-1.02); GLOMERULAR FILTRATION RATE > 60.0 (>58); GLUCOSE, FASTING 110 MG/DL (70-105); POTASSIUM SERUM 4.7 MEQ/L (3.5-5.1); SODIUM LEVEL 143 MEQ/L (136-145); TOTAL PROTEIN 6.8 GM/DL (6.4-8.2); TRIGLYCERIDES LEVEL 97 MG/DL (<150)
[2017-05-04 13:30] LABS: BASO # 0.1 10^3/uL (0.0-0.2); BASO % 1.1 % (0.0-1.0); EOS # 0.1 10^3/uL (0.0-0.50); EOS % 1.5 % (0.0-3.0); IMMATURE GRANULOCYTE % 0.2 % (0-0); LYMPH # 2.7 10^3/uL (1.5-4.5); MEAN CORPUSCULAR HEMOGLOBIN 28.4 pg (27.0-33.0); MEAN CORPUSCULAR HGB CONC 32.5 g/dl (32.0-36.5); MEAN CORPUSCULAR VOLUME 87.5 fl (80.0-96.0); MONO # 0.4 10^3/uL (0.0-0.8); MONO % 5.8 % (0.0-5.0); NEUTROPHILS % 48.4 % (36.0-66.0); PLATELET COUNT, AUTOMATED 248 10^3/uL (150-450); RED CELL DISTRIBUTION WIDTH 15.3 % (11.5-14.5); WHITE BLOOD COUNT 6.2 10^3/uL (4.0-10.0)
== END ==
LOC: M WUC 09:44
PROVIDERS: ATTEND Family Medicine Addiction Medicine
DX: I10 Essential (primary) hypertension (principal)

== ENCOUNTER → 2017-10-12 | Outpatient (REF) | payer OTHER ==
[2017-10-12 18:50] LABS: CHLAMYDIA DNA AMPLIFICATION NEGATIVE (NEGATIVE); GC DNA AMPLIFICATION NEGATIVE (NEGATIVE)
== END ==
LOC: M LAB REF 16:45
DX: Z12.4 Encounter for screening for malignant neoplasm of cervix (principal)

== ENCOUNTER → 2018-12-03 | Outpatient (REF) | payer OTHER, MEDICAID ==
[2018-12-03 13:08] LABS: BASO # 0.1 10^3/uL (0.0-0.2); BASO % 1.1 % (0.0-1.0); EOS # 0.2 10^3/uL (0.0-0.50); HEMATOCRIT 38.9 % (36.0-47.0); HEMOGLOBIN 13.2 g/dl (12.0-15.5); LYMPH # 2.9 10^3/uL (1.5-4.5); LYMPH % 41.8 % (24.0-44.0); MEAN CORPUSCULAR HEMOGLOBIN 28.8 pg (27.0-33.0); MEAN CORPUSCULAR HGB CONC 33.9 g/dl (32.0-36.5); MEAN CORPUSCULAR VOLUME 84.9 fl (80.0-96.0); MONO # 0.3 10^3/uL (0.0-0.8); MONO % 4.6 % (0.0-5.0); NEUTROPHILS # 3.4 10^3/uL (1.8-7.7); NEUTROPHILS % 49.2 % (36.0-66.0); PLATELET COUNT, AUTOMATED 252 10^3/uL (150-450); RED BLOOD COUNT 4.58 10^6/uL (4.00-5.40)
[2018-12-03 13:21] LABS: ALBUMIN 3.4 GM/DL (3.2-5.2); ALT/SGPT 26 U/L (12-78); BILIRUBIN,TOTAL 0.8 MG/DL (0.2-1.0); BLOOD UREA NITROGEN 19 MG/DL (7-18); CALCIUM LEVEL 8.4 MG/DL (8.5-10.1); CARBON DIOXIDE LEVEL 29 MEQ/L (21-32); CHLORIDE LEVEL 103 MEQ/L (98-107); CHOLESTEROL LEVEL 251 MG/DL (<200); CHOLESTEROL RISK RATIO 4.327 (<5); CREATININE FOR GFR 0.75 MG/DL (0.55-1.30); FERRITIN 15 NG/ML (8-252); FREE T4 0.92 NG/DL (0.76-1.46); GLOMERULAR FILTRATION RATE > 60.0 (>58); GLUCOSE, FASTING 140 MG/DL (70-100); HDL CHOLESTEROL 58 MG/DL (>40); IRON (FE) 82 UG/DL (50-170); LDL CHOLESTEROL 155 MG/DL (<100); NON-HDL-C 193 MG/DL; POTASSIUM SERUM 3.6 MEQ/L (3.5-5.1); SODIUM LEVEL 139 MEQ/L (136-145); TRIGLYCERIDES LEVEL 192 MG/DL (<150)
[2018-12-03 14:09] LABS: HEMOGLOBIN A1c 6.7 %
== END ==
LOC: M LAB REF 12:18
PROVIDERS: ATTEND Nurse Practitioner Family
DX: Z13.220 Encounter for screening for lipoid disorders (principal); I10 Essential (primary) hypertension; Z00.00 Encounter for general adult medical examination without abnormal findings

== ENCOUNTER → 2019-02-20 | Outpatient (REF) | payer OTHER, MEDICAID ==
[2019-02-20 14:01] LABS: ALBUMIN 3.4 GM/DL (3.2-5.2); ALT/SGPT 25 U/L (12-78); BILIRUBIN,TOTAL 0.7 MG/DL (0.2-1.0); BLOOD UREA NITROGEN 22 MG/DL (7-18); CALCIUM LEVEL 8.9 MG/DL (8.5-10.1); CARBON DIOXIDE LEVEL 27 MEQ/L (21-32); CHLORIDE LEVEL 108 MEQ/L (98-107); CHOLESTEROL LEVEL 240 MG/DL (<200); CHOLESTEROL RISK RATIO 4.705 (<5); GLOMERULAR FILTRATION RATE > 60.0 (>58); GLUCOSE, FASTING 120 MG/DL (70-100); HDL CHOLESTEROL 51 MG/DL (>40); LDL CHOLESTEROL 156 MG/DL (<100); NON-HDL-C 189 MG/DL; POTASSIUM SERUM 3.6 MEQ/L (3.5-5.1); SODIUM LEVEL 142 MEQ/L (136-145); TOTAL PROTEIN 6.5 GM/DL (6.4-8.2); TRIGLYCERIDES LEVEL 165 MG/DL (<150)
[2019-02-20 14:53] LABS: HEMOGLOBIN A1c 6.4 %
== END ==
LOC: M LAB REF 12:29
PROVIDERS: ATTEND Nurse Practitioner Family
DX: Z00.01 Encounter for general adult medical examination with abnormal findings (principal)

== ENCOUNTER 2020-12-25 18:37 | Inpatient (IN) | payer BC, MEDICAID, OTHER ==
[~2020-12-25] VITALS: Ht 167.6 cm; Wt 147.1 kg
[2020-12-25 20:05] LABS: BASO # 0.1 10^3/uL (0.0-0.2); BASO % 0.8 % (0.0-1.0); EOS # 0.1 10^3/uL (0.0-0.5); EOS % 1.5 % (0.0-3.0); HEMATOCRIT 37.4 % (36.0-47.0); HEMOGLOBIN 12.8 g/dl (12.0-15.5); LYMPH % 21.3 % (24.0-44.0); MEAN CORPUSCULAR HEMOGLOBIN 29.5 pg (27.0-33.0); MEAN CORPUSCULAR HGB CONC 34.2 g/dl (32.0-36.5); MEAN CORPUSCULAR VOLUME 86.2 fl (80.0-96.0); MONO # 0.4 10^3/uL (0.0-0.8); MONO % 4.6 % (2.0-8.0); NEUTROPHILS # 6.6 10^3/uL (1.5-8.5); NEUTROPHILS % 71.5 % (36.0-66.0); PLATELET COUNT, AUTOMATED 212 10^3/uL (150-450); RED BLOOD COUNT 4.34 10^6/uL (4.00-5.40); WHITE BLOOD COUNT 9.3 10^3/uL (4.0-10.0)
[2020-12-25 20:29] LABS: HCG, SERUM QUALITATIVE NEGATIVE (NEGATIVE)
[2020-12-25 20:40] LABS: BLOOD UREA NITROGEN 22 MG/DL (7-18); CALCIUM LEVEL 8.7 MG/DL (8.5-10.1); CARBON DIOXIDE LEVEL 27 MEQ/L (21-32); CHLORIDE LEVEL 107 MEQ/L (98-107); CK-MB VALUE MASS 1.7 NG/ML (<3.6); CPK CREATINE PHOSPHOKINASE 120 U/L (26-192); CREATININE FOR GFR 0.77 MG/DL (0.55-1.30); FREE T4 0.92 NG/DL (0.76-1.46); GLOMERULAR FILTRATION RATE > 60.0 (>58); GLUCOSE, FASTING 181 MG/DL (70-100); MB/CK RELATIVE INDEX 1.42 (< OR =4); POTASSIUM SERUM 3.5 MEQ/L (3.5-5.1); SODIUM LEVEL 141 MEQ/L (136-145); TROPONIN I < 0.02 NG/ML (< 0.10)
[2020-12-25] MEDS: DOCUSATE SODIUM 100MG CAPSULE PO SCH (21:00)
[2020-12-25] MEDS ORDERED: MORPHINE 2 MG/ML 1ML VIAL (J2270) IV ONE (21:55)
[2020-12-25] MEDS: MORPHINE 4 MG/ML 1ML VIAL/SYRINGE (J2270) IV ONE (23:05)
[2020-12-26] MEDS ORDERED: LIDOCAINE 2% MDV 20ML VIAL SC ONE
[2020-12-26 00:03] LABS: RSV AMPLIFICATION NEGATIVE (NEGATIVE)
[2020-12-26] MEDS ORDERED: MOM 30ML SUSPENSION UDC PO PRN (00:35)
[2020-12-26] MEDS ORDERED: IBUP200T46 PO (00:40)
[2020-12-26] MEDS ORDERED: HOME MED LIST COMPLETE! XX SCH (00:45)
[2020-12-26] MEDS ORDERED: MORPHINE 4 MG/ML 1ML VIAL/SYRINGE (J2270) IV PRN (01:05)
[2020-12-26] MEDS: MORPHINE 4 MG/ML 1ML VIAL/SYRINGE (J2270) IV ONE (03:07)
[2020-12-26 03:50] VITALS: BP 200/110
[2020-12-26] MEDS ORDERED: **hydrALAZINE** 10 MG TAB PO ONE (04:20)
[2020-12-26] MEDS ORDERED: MORPHINE 2 MG/ML 1ML VIAL (J2270) IV ONE (04:20)
[2020-12-26 05:58] LABS: HEMATOCRIT 36.6 % (36.0-47.0); HEMOGLOBIN 12.5 g/dl (12.0-15.5); MEAN CORPUSCULAR HEMOGLOBIN 29.7 pg (27.0-33.0); MEAN CORPUSCULAR HGB CONC 34.2 g/dl (32.0-36.5); MEAN CORPUSCULAR VOLUME 86.9 fl (80.0-96.0); PLATELET COUNT, AUTOMATED 202 10^3/uL (150-450); RED BLOOD COUNT 4.21 10^6/uL (4.00-5.40); WHITE BLOOD COUNT 10.2 10^3/uL (4.0-10.0)
[2020-12-26 06:00] VITALS: BP_SYST 120; BP_SYST 180; BP_SYST 190; BP_DIAS 102; BP_DIAS 108; BP_DIAS 96
[2020-12-26 06:29] LABS: ALBUMIN 3.4 GM/DL (3.2-5.2); ALT/SGPT 30 U/L (12-78); BILIRUBIN,TOTAL 0.6 MG/DL (0.2-1.0); BLOOD UREA NITROGEN 18 MG/DL (7-18); CALCIUM LEVEL 8.7 MG/DL (8.5-10.1); CARBON DIOXIDE LEVEL 26 MEQ/L (21-32); CHLORIDE LEVEL 108 MEQ/L (98-107); CHOLESTEROL LEVEL 209 MG/DL (<200); CHOLESTEROL RISK RATIO 3.073 (<5); CREATININE FOR GFR 0.61 MG/DL (0.55-1.30); GLOMERULAR FILTRATION RATE > 60.0 (>58); GLUCOSE, FASTING 135 MG/DL (70-100); HDL CHOLESTEROL 68 MG/DL (>40); LDL CHOLESTEROL 124 MG/DL (<100); NON-HDL-C 141 MG/DL; POTASSIUM SERUM 3.4 MEQ/L (3.5-5.1); SODIUM LEVEL 141 MEQ/L (136-145); TOTAL PROTEIN 6.8 GM/DL (6.4-8.2); TRIGLYCERIDES LEVEL 86 MG/DL (<150)
[2020-12-26] MEDS ORDERED: POTASSIUM CHLORIDE 10MEQ SR TABLET PO ONE (06:50)
[2020-12-26] MEDS: NS 1,000 ML IV SCH ×2 (07:01→16:15)
[2020-12-26] MEDS: DOCUSATE SODIUM 100MG CAPSULE PO SCH ×2 (09:04→21:06)
[2020-12-26] MEDS: ENOXAPARIN 40MG/0.4ML SYRINGE (J1650 PER 10MG) SC SCH (09:05)
[2020-12-26] MEDS: ACETAMINOPHEN TAB 650MG DOSE (2X325MG) PO PRN ×3 (09:06→21:41)
[2020-12-26 10:16] VITALS: BP 167/92
[2020-12-26 11:42] VITALS: BP 160/88
[2020-12-26 14:00] VITALS: BP 161/98
[2020-12-26 22:00] VITALS: BP 161/97
[2020-12-27 03:50] VITALS: BP_SYST 165; BP_SYST 180; BP_SYST 192; BP_DIAS 117; BP_DIAS 121; BP_DIAS 84
[2020-12-27 06:00] VITALS: BP 170/98
[2020-12-27] MEDS: ACETAMINOPHEN TAB 650MG DOSE (2X325MG) PO PRN (08:31)
[2020-12-27] MEDS: DOCUSATE SODIUM 100MG CAPSULE PO SCH (08:31)
[2020-12-27] MEDS: ENOXAPARIN 40MG/0.4ML SYRINGE (J1650 PER 10MG) SC SCH (08:32)
[2020-12-27 09:47] VITALS: BP 160/102
[2020-12-27 11:17] VITALS: BP 163/106
[2020-12-27] MEDS ORDERED: LISI20TA33 PO (11:29)
[2020-12-27] MEDS ORDERED: amLODIPine 5 MG TAB PO ONE (11:30)
[2020-12-27] MEDS ORDERED: AMLO1TAB24 PO (11:32)
[2020-12-27 11:46] VITALS: BP 163/106
[2020-12-27 12:40] VITALS: BP_SYST 146; BP_SYST 162; BP_DIAS 106; BP_DIAS 90
== END 2020-12-27 14:27 | disposition home or self-care (01) | DRG 53 ==
LOC: EDBD 18:37 → M ED 18:37 → M ED INP 12-26 00:31 → ENRESERV 12-26 01:08 → M MSPAV 12-26 03:42
PROVIDERS: ADMIT Family Medicine; ATTEND Internal Medicine Nephrology
DX: G40.909 Epilepsy, unspecified, not intractable, without status epilepticus (principal); Z68.43 Body mass index [BMI] 50.0-59.9, adult; I10 Essential (primary) hypertension; E66.01 Morbid (severe) obesity due to excess calories; R55 Syncope and collapse; I16.0 Hypertensive urgency; Z20.822 Contact with and (suspected) exposure to COVID-19; S62.525A Nondisplaced fracture of distal phalanx of left thumb, initial encounter for closed fracture; S52.571A Other intraarticular fracture of lower end of right radius, initial encounter for closed fracture; W18.30XA Fall on same level, unspecified, initial encounter; Y92.512 Supermarket, store or market as the place of occurrence of the external cause; Y99.0 Civilian activity done for income or pay; Y93.G1 Activity, food preparation and clean up; Z91.128 Patient's intentional underdosing of medication regimen for other reason; T42.76XA Underdosing of unspecified antiepileptic and sedative-hypnotic drugs, initial encounter

== ENCOUNTER 2024-06-17 01:18 | Inpatient (IN) | payer OTHER ==
[~2024-06-17] VITALS: Ht 170.2 cm; Wt 131.5 kg
[~2024-06-17 01:18] MED LIST changes: +AMLO1TAB24 PO; +IBUP200T46 PO; +LISI20TA33 PO
[2024-06-17 05:31] LABS: VENOUS BASE EXCESS -1.1 (-2.0-2.0); VENOUS HCO3 22.5 MMOL/L (23.0-27.0); VENOUS O2 SATURATION 96.2 % (60.0-80.0); VENOUS PARTIAL PRESSURE CO2 34.3 mmHg (38.0-50.0); VENOUS PARTIAL PRESSURE O2 81.4 mmHg (30.0-50.0); VENOUS PH 7.435 UNITS (7.330-7.430); VENOUS STANDARD HCO3 23.5 MMOL/L; VENOUS TOTAL CO2 23.6 MMOL/L (24.0-28.0)
[2024-06-17 05:35] LABS: BASO # 0.1 10^3/uL (0.0-0.2); BASO % 0.7 % (0.0-1.0); EOS # 0.2 10^3/uL (0.0-0.5); EOS % 2.4 % (0.0-3.0); HEMATOCRIT 35.7 % (36.0-47.0); HEMOGLOBIN 11.5 g/dl (12.0-15.5); LYMPH # 1.9 10^3/uL (1.5-5.0); LYMPH % 19.2 % (24.0-44.0); MEAN CORPUSCULAR HEMOGLOBIN 27.5 pg (27.0-33.0); MEAN CORPUSCULAR HGB CONC 32.2 g/dl (32.0-36.5); MEAN CORPUSCULAR VOLUME 85.4 fl (80.0-96.0); MONO # 0.5 10^3/uL (0.0-0.8); MONO % 5.3 % (2.0-8.0); NEUTROPHILS % 72.1 % (36.0-66.0); PLATELET COUNT, AUTOMATED 294 10^3/uL (150-450); RED BLOOD COUNT 4.18 10^6/uL (4.00-5.40); WHITE BLOOD COUNT 9.7 10^3/uL (4.0-10.0)
[2024-06-17 05:56] LABS: CK-MB VALUE MASS 2.7 NG/ML (<3.6)
[2024-06-17 05:57] LABS: MB/CK RELATIVE INDEX 3.64 (< OR =4)
[2024-06-17 05:58] LABS: CPK CREATINE PHOSPHOKINASE 77 U/L (34-145)
[2024-06-17 05:59] LABS: ALBUMIN 3.2 G/DL (3.2-5.2); ALKALINE PHOSPHATASE 282 U/L (35-104); ALT/SGPT 30 U/L (7.0-40); AST/SGOT 61 U/L (<34); BILIRUBIN,DIRECT 0.2 MG/DL (<0.4); BILIRUBIN,TOTAL 0.7 MG/DL (0.3-1.2); BLOOD UREA NITROGEN 20 MG/DL (9-23); CALCIUM LEVEL 9.3 MG/DL (8.5-10.1); CARBON DIOXIDE LEVEL 25 MMOL/L (20-31); CHLORIDE LEVEL 105 MMOL/L (98-107); CK-MB VALUE MASS 1.8 NG/ML (<3.6); CREATININE FOR GFR 0.71 MG/DL (0.55-1.30); GLOMERULAR FILTRATION RATE > 60.0 (>58); GLUCOSE, FASTING 120 MG/DL (60-100); MB/CK RELATIVE INDEX 2.33 (< OR =4); POTASSIUM SERUM 3.5 MMOL/L (3.5-5.1); SODIUM LEVEL 141 MMOL/L (136-145); TOTAL PROTEIN 7.4 G/DL (5.7-8.2)
[2024-06-17 06:03] LABS: INR 1.04
[2024-06-17] MEDS ORDERED: ISOVUE-370 76% 100ML VIAL As Ordered ONE (06:35)
[2024-06-17] MEDS: amLODIPine 5 MG TAB PO ONE ×2 (07:22→12:23)
[2024-06-17] MEDS: LORazepam 2 MG/ML 1ML VIAL IV STA (08:09)
[2024-06-17] MEDS ORDERED: LEVALBUTEROL 1.25MG 0.5ML CONCENTRATE NEB NEB PRN (08:40)
[2024-06-17] MEDS ORDERED: ONDANSETRON 4MG 2ML VIAL IV PRN (08:40)
[2024-06-17] MEDS ORDERED: PERCOCET 5MG/325MG TAB PO PRN ×2 (08:40)
[2024-06-17] MEDS ORDERED: BISACODYL 10MG SUPP PR PRN (08:40)
[2024-06-17] MEDS ORDERED: ACETAMINOPHEN 325 MG TAB PO PRN (08:40)
[2024-06-17] MEDS ORDERED: MUCI120T PO (09:07)
[2024-06-17] MEDS ORDERED: LISI20TA33 PO (09:09)
[2024-06-17] MEDS ORDERED: HOME MED LIST COMPLETE! XX SCH (09:10)
[2024-06-17 09:14] LABS: LDH LACTATE DEHYDROGENASE 415 U/L (120-246)
[2024-06-17] MEDS: LABETALOL 100MG/20ML VIAL IV ONE (09:40)
[2024-06-17] MEDS: D5W/0.9% SODIUM CHLORIDE 1,000 ML IV SCH (09:40)
[2024-06-17 11:00] VITALS: BP 184/96; TEMP 97.9; O2SAT 97
[2024-06-17] MEDS: KETOROLAC 30 MG/ML 1ML VIAL IV SCH (11:19)
[2024-06-17] MEDS: MOM 30ML SUSPENSION UDC PO SCH (11:19)
[2024-06-17] MEDS: DOCUSATE SODIUM 100MG CAPSULE PO SCH (11:20)
[2024-06-17 11:38] LABS: PLEURAL FL COLOR RED (COLORLESS); SOURCE, BODY FLUID PLEURAL
[2024-06-17 11:39] LABS: APPEARANCE, BODY FLUID CLOUDY (CLEAR)
[2024-06-17 11:42] LABS: PH BODY FLUID 7.346 UNITS (NOT ESTABLISHED); SOURCE, BODY FLUID pH PLEURAL
[2024-06-17 11:46] LABS: SOURCE, BODY FLUID ALBUMIN PLEURAL
[2024-06-17] MEDS: HEPARIN SOD (PORCINE) 5000UNITS/ML 1ML VIAL/SYRINGE SC SCH (11:47)
[2024-06-17 11:48] LABS: PROCALCITONIN 0.13 ng/ml
[2024-06-17 11:51] LABS: SOURCE, BODY FLUID GLUCOSE PLEURAL
[2024-06-17 11:52] LABS: SOURCE, BODY FLUID TOT PROTEIN PLEURAL; TOTAL PROTEIN, BODY FLUID 4.7 G/DL (NOT ESTABLISHED)
[2024-06-17 11:53] LABS: AMYLASE, BODY FLUID 43 U/L (NOT ESTABLISHED); CHOLESTEROL, BODY FLUID 98 MG/DL (NOT ESTABLISHED); SOURCE, BODY FLUID AMYLASE PLEURAL; SOURCE, BODY FLUID CHOL PLEURAL
[2024-06-17] MEDS: PANTOPRAZOLE 40MG TAB (PROTONIX) PO SCH (11:54)
[2024-06-17 12:00] VITALS: BP 160/74; TEMP 98.1; O2SAT 96
[2024-06-17] MEDS: LEVALBUTEROL 1.25MG 0.5ML CONCENTRATE NEB NEB SCH (12:01)
[2024-06-17 12:02] LABS: LDH, BODY FLUID > 750 U/L (NOT ESTABLISHED); SOURCE, BODY FLUID LDH PLEURAL
[2024-06-17 12:05] LABS: SOURCE, BODY FLUID TRIG PLEURAL; TRIGLYCERIDE, BODY FLUID 50 MG/DL (NOT ESTABLISHED)
[2024-06-17 16:03] VITALS: BP 135/71; TEMP 97.5; O2SAT 94
[2024-06-17 17:20] VITALS: BP 147/75; TEMP 98.6; O2SAT 92
[2024-06-17 19:39] VITALS: BP 147/66; TEMP 97.9; O2SAT 96
[2024-06-17 23:24] VITALS: BP 156/89; TEMP 97.3; O2SAT 97
[2024-06-18 04:17] VITALS: BP 160/79; TEMP 97.2; O2SAT 96
[2024-06-18 05:42] LABS: ABG BASE EXCESS 3.1 (-2.0-2.0); ABG HCO3 25.6 MMOL/L (22.0-26.0); ABG O2 SATURATION 97.6 % (95.0-99.0); ABG PARTIAL PRESSURE CO2 32.1 mmHg (35.0-45.0); ABG PARTIAL PRESSURE O2 101.9 mmHg (75.0-100.0); ABG STANDARD HCO3 27.3 MMOL/L. (22.0-26.0); ABG TOTAL CO2 26.6 MMOL/L (22.0-29.0)
[2024-06-18] MEDS: GASTROGRAFIN SOLUTION 30ML PO SCH (05:59)
[2024-06-18 06:02] LABS: BASO # 0.1 10^3/uL (0.0-0.2); BASO % 0.6 % (0.0-1.0); EOS # 0.4 10^3/uL (0.0-0.5); EOS % 4.4 % (0.0-3.0); HEMATOCRIT 33.5 % (36.0-47.0); HEMOGLOBIN 10.9 g/dl (12.0-15.5); LYMPH # 2.2 10^3/uL (1.5-5.0); LYMPH % 25.1 % (24.0-44.0); MEAN CORPUSCULAR HEMOGLOBIN 27.6 pg (27.0-33.0); MEAN CORPUSCULAR HGB CONC 32.5 g/dl (32.0-36.5); MEAN CORPUSCULAR VOLUME 84.8 fl (80.0-96.0); MONO # 0.6 10^3/uL (0.0-0.8); MONO % 6.4 % (2.0-8.0); NEUTROPHILS # 5.4 10^3/uL (1.5-8.5); NEUTROPHILS % 63.1 % (36.0-66.0); PLATELET COUNT, AUTOMATED 263 10^3/uL (150-450); RED BLOOD COUNT 3.95 10^6/uL (4.00-5.40); WHITE BLOOD COUNT 8.6 10^3/uL (4.0-10.0)
[2024-06-18 06:20] LABS: BLOOD UREA NITROGEN 21 MG/DL (9-23); CALCIUM LEVEL 8.7 MG/DL (8.5-10.1); CARBON DIOXIDE LEVEL 27 MMOL/L (20-31); CHLORIDE LEVEL 107 MMOL/L (98-107); CREATININE FOR GFR 0.87 MG/DL (0.55-1.30); GLOMERULAR FILTRATION RATE > 60.0 (>58); GLUCOSE, FASTING 116 MG/DL (60-100); POTASSIUM SERUM 3.3 MMOL/L (3.5-5.1); SODIUM LEVEL 144 MMOL/L (136-145)
[2024-06-18 08:00] VITALS: BP 170/92; TEMP 97.5; O2SAT 98
[2024-06-18] MEDS ORDERED: amLODIPine 5 MG TAB PO SCH (09:00)
[2024-06-18] MEDS: POTASSIUM CHLORIDE 10MEQ SR TABLET PO ONE (09:28)
[2024-06-18] MEDS: lisinopriL 40MG TAB PO SCH (09:34)
[2024-06-18 12:31] VITALS: BP 179/79; TEMP 97.6; O2SAT 97
[2024-06-18] MEDS: LABETALOL 100MG/20ML VIAL IV PRN (13:04)
[2024-06-18 15:43] VITALS: BP 162/74; TEMP 98.6; O2SAT 96
[2024-06-18] MEDS ORDERED: hydrALAZINE 20MG/ML 1ML VIAL IV PRN (18:00)
[2024-06-18 19:32] VITALS: BP 156/72; TEMP 97.2; O2SAT 100
[2024-06-18 20:17] LABS: CA19-9 TUMOR MARKER,CARBOHYDRA 2639.3 U/ML (<35.0)
[2024-06-18 23:44] VITALS: BP 151/72; TEMP 98.3; O2SAT 96
[2024-06-19] VITALS (9 sets, daily range): BP systolic 146–164; BP diastolic 70–100; TEMP 97.4–98.2; O2SAT 83–99
[2024-06-19 07:44] LABS: BASO # 0.1 10^3/uL (0.0-0.2); BASO % 0.8 % (0.0-1.0); EOS # 0.5 10^3/uL (0.0-0.5); EOS % 5.5 % (0.0-3.0); HEMATOCRIT 36.2 % (36.0-47.0); HEMOGLOBIN 11.7 g/dl (12.0-15.5); LYMPH % 21.6 % (24.0-44.0); MEAN CORPUSCULAR HEMOGLOBIN 27.4 pg (27.0-33.0); MEAN CORPUSCULAR HGB CONC 32.3 g/dl (32.0-36.5); MEAN CORPUSCULAR VOLUME 84.8 fl (80.0-96.0); MONO # 0.4 10^3/uL (0.0-0.8); MONO % 4.4 % (2.0-8.0); NEUTROPHILS # 6.3 10^3/uL (1.5-8.5); NEUTROPHILS % 67.5 % (36.0-66.0); PLATELET COUNT, AUTOMATED 317 10^3/uL (150-450); RED BLOOD COUNT 4.27 10^6/uL (4.00-5.40); WHITE BLOOD COUNT 9.3 10^3/uL (4.0-10.0)
[2024-06-19 08:11] LABS: BLOOD UREA NITROGEN 18 MG/DL (9-23); CALCIUM LEVEL 8.8 MG/DL (8.5-10.1); CARBON DIOXIDE LEVEL 28 MMOL/L (20-31); CHLORIDE LEVEL 108 MMOL/L (98-107); CREATININE FOR GFR 0.76 MG/DL (0.55-1.30); GLOMERULAR FILTRATION RATE > 60.0 (>58); GLUCOSE, FASTING 137 MG/DL (60-100); POTASSIUM SERUM 4.2 MMOL/L (3.5-5.1); SODIUM LEVEL 143 MMOL/L (136-145)
[2024-06-19] MEDS: FUROSEMIDE 40MG/4ML VIAL IV ONE ×2 (09:01→21:07)
[2024-06-20] VITALS (15 sets, daily range): BP systolic 125–172; BP diastolic 62–85; TEMP 97.2–98; O2SAT 93–99
[2024-06-20 05:59] LABS: BASO # 0.1 10^3/uL (0.0-0.2); BASO % 0.9 % (0.0-1.0); EOS # 0.5 10^3/uL (0.0-0.5); EOS % 5.9 % (0.0-3.0); HEMATOCRIT 34.9 % (36.0-47.0); HEMOGLOBIN 11.2 g/dl (12.0-15.5); LYMPH # 1.9 10^3/uL (1.5-5.0); LYMPH % 22.1 % (24.0-44.0); MEAN CORPUSCULAR HEMOGLOBIN 27.1 pg (27.0-33.0); MEAN CORPUSCULAR HGB CONC 32.1 g/dl (32.0-36.5); MEAN CORPUSCULAR VOLUME 84.5 fl (80.0-96.0); MONO # 0.4 10^3/uL (0.0-0.8); MONO % 4.8 % (2.0-8.0); NEUTROPHILS # 5.8 10^3/uL (1.5-8.5); NEUTROPHILS % 66.1 % (36.0-66.0); PLATELET COUNT, AUTOMATED 284 10^3/uL (150-450); RED BLOOD COUNT 4.13 10^6/uL (4.00-5.40); WHITE BLOOD COUNT 8.7 10^3/uL (4.0-10.0)
[2024-06-20 06:25] LABS: BLOOD UREA NITROGEN 19 MG/DL (9-23); CALCIUM LEVEL 9.1 MG/DL (8.5-10.1); CARBON DIOXIDE LEVEL 31 MMOL/L (20-31); CHLORIDE LEVEL 105 MMOL/L (98-107); CREATININE FOR GFR 0.85 MG/DL (0.55-1.30); GLOMERULAR FILTRATION RATE > 60.0 (>58); GLUCOSE, FASTING 131 MG/DL (60-100); POTASSIUM SERUM 3.9 MMOL/L (3.5-5.1); SODIUM LEVEL 143 MMOL/L (136-145)
[2024-06-20] MEDS: POTASSIUM CHLORIDE 10MEQ SR TABLET PO ONE (08:46)
[2024-06-20] MEDS: FUROSEMIDE 40MG/4ML VIAL IV ONE (08:47)
[2024-06-20] MEDS: FUROSEMIDE 40MG/4ML VIAL IV SCH (16:49)
[2024-06-21] VITALS (7 sets, daily range): BP systolic 118–147; BP diastolic 55–75; TEMP 97.1–98.5; O2SAT 97–99
[2024-06-21 06:34] LABS: BASO # 0.1 10^3/uL (0.0-0.2); BASO % 1.1 % (0.0-1.0); EOS # 0.7 10^3/uL (0.0-0.5); HEMATOCRIT 36.3 % (36.0-47.0); HEMOGLOBIN 11.5 g/dl (12.0-15.5); LYMPH # 2.2 10^3/uL (1.5-5.0); LYMPH % 25.6 % (24.0-44.0); MEAN CORPUSCULAR HEMOGLOBIN 27.4 pg (27.0-33.0); MEAN CORPUSCULAR HGB CONC 31.7 g/dl (32.0-36.5); MEAN CORPUSCULAR VOLUME 86.6 fl (80.0-96.0); MONO # 0.5 10^3/uL (0.0-0.8); MONO % 5.8 % (2.0-8.0); NEUTROPHILS % 59.3 % (36.0-66.0); PLATELET COUNT, AUTOMATED 290 10^3/uL (150-450); RED BLOOD COUNT 4.19 10^6/uL (4.00-5.40); WHITE BLOOD COUNT 8.5 10^3/uL (4.0-10.0)
[2024-06-21 07:11] LABS: BLOOD UREA NITROGEN 24 MG/DL (9-23); CARBON DIOXIDE LEVEL 32 MMOL/L (20-31); CHLORIDE LEVEL 102 MMOL/L (98-107); CREATININE FOR GFR 0.86 MG/DL (0.55-1.30); GLOMERULAR FILTRATION RATE > 60.0 (>58); GLUCOSE, FASTING 112 MG/DL (60-100); POTASSIUM SERUM 4.2 MMOL/L (3.5-5.1); SODIUM LEVEL 144 MMOL/L (136-145)
[2024-06-21] MEDS: POTASSIUM CHLORIDE 10MEQ SR TABLET PO SCH (08:18)
[2024-06-21] MEDS ORDERED: MOM 30ML SUSPENSION UDC PO PRN (11:50)
[2024-06-21] MEDS: SENNA 8.6 MG TAB (SENOKOT) PO SCH (21:00)
[2024-06-22] VITALS (24 sets, daily range): BP systolic 114–140; BP diastolic 56–68; TEMP 97.5–98.4; O2SAT 92–98
[2024-06-22 06:11] LABS: BASO # 0.1 10^3/uL (0.0-0.2); BASO % 0.9 % (0.0-1.0); EOS # 0.6 10^3/uL (0.0-0.5); EOS % 8.6 % (0.0-3.0); HEMATOCRIT 35.4 % (36.0-47.0); HEMOGLOBIN 11.2 g/dl (12.0-15.5); LYMPH # 2.1 10^3/uL (1.5-5.0); MEAN CORPUSCULAR HEMOGLOBIN 27.3 pg (27.0-33.0); MEAN CORPUSCULAR HGB CONC 31.6 g/dl (32.0-36.5); MEAN CORPUSCULAR VOLUME 86.1 fl (80.0-96.0); MONO # 0.5 10^3/uL (0.0-0.8); MONO % 6.4 % (2.0-8.0); NEUTROPHILS # 4.2 10^3/uL (1.5-8.5); PLATELET COUNT, AUTOMATED 269 10^3/uL (150-450); RED BLOOD COUNT 4.11 10^6/uL (4.00-5.40); WHITE BLOOD COUNT 7.5 10^3/uL (4.0-10.0)
[2024-06-22 06:41] LABS: BLOOD UREA NITROGEN 27 MG/DL (9-23); CARBON DIOXIDE LEVEL 31 MMOL/L (20-31); CHLORIDE LEVEL 106 MMOL/L (98-107); CREATININE FOR GFR 0.89 MG/DL (0.55-1.30); GLOMERULAR FILTRATION RATE > 60.0 (>58); GLUCOSE, FASTING 115 MG/DL (60-100); POTASSIUM SERUM 4.4 MMOL/L (3.5-5.1); SODIUM LEVEL 142 MMOL/L (136-145)
[2024-06-22] MEDS ORDERED: FUROSEMIDE 40MG/4ML VIAL IV SCH ×2 (09:00→17:00)
[2024-06-22] MEDS: FUROSEMIDE 20MG/2ML VIAL IV ONE (10:13)
[2024-06-22] MEDS: FUROSEMIDE 100MG/10ML VIAL IV SCH (17:44)
[2024-06-23] VITALS (14 sets, daily range): BP systolic 110–124; BP diastolic 56–63; TEMP 97.6–98.3; O2SAT 90–98
[2024-06-23 06:16] LABS: BASO # 0.1 10^3/uL (0.0-0.2); BASO % 0.9 % (0.0-1.0); EOS # 0.6 10^3/uL (0.0-0.5); EOS % 6.4 % (0.0-3.0); HEMATOCRIT 34.8 % (36.0-47.0); HEMOGLOBIN 11.1 g/dl (12.0-15.5); LYMPH # 1.9 10^3/uL (1.5-5.0); LYMPH % 22.2 % (24.0-44.0); MEAN CORPUSCULAR HEMOGLOBIN 27.3 pg (27.0-33.0); MEAN CORPUSCULAR HGB CONC 31.9 g/dl (32.0-36.5); MEAN CORPUSCULAR VOLUME 85.7 fl (80.0-96.0); MONO # 0.6 10^3/uL (0.0-0.8); MONO % 7.2 % (2.0-8.0); NEUTROPHILS # 5.4 10^3/uL (1.5-8.5); PLATELET COUNT, AUTOMATED 277 10^3/uL (150-450); RED BLOOD COUNT 4.06 10^6/uL (4.00-5.40); WHITE BLOOD COUNT 8.6 10^3/uL (4.0-10.0)
[2024-06-23 06:42] LABS: BLOOD UREA NITROGEN 35 MG/DL (9-23); CALCIUM LEVEL 9.1 MG/DL (8.5-10.1); CARBON DIOXIDE LEVEL 31 MMOL/L (20-31); CHLORIDE LEVEL 104 MMOL/L (98-107); CREATININE FOR GFR 0.92 MG/DL (0.55-1.30); GLOMERULAR FILTRATION RATE > 60.0 (>58); GLUCOSE, FASTING 118 MG/DL (60-100); POTASSIUM SERUM 4.4 MMOL/L (3.5-5.1); SODIUM LEVEL 143 MMOL/L (136-145)
[2024-06-23] MEDS ORDERED: LASI40TA9 PO (13:12)
[2024-06-23] MEDS ORDERED: ACET32TAB PO (13:12)
[2024-06-23] MEDS ORDERED: COLA100C5 PO (13:12)
[2024-06-23] MEDS ORDERED: AMLO1TAB25 PO (13:12)
[2024-06-23] MEDS ORDERED: LISI40TA4 PO (13:12)
[2024-06-23] MEDS ORDERED: POTA-298 PO (13:12)
== END 2024-06-23 15:25 | disposition home or self-care (01) | DRG 187 ==
LOC: M ED 01:18 → M ED INP 08:40 → M ICU 11:00 → M PCU 17:10
PROVIDERS: ADMIT Internal Medicine; ATTEND Internal Medicine
PROC: B246ZZZ Ultrasonography of Right and Left Heart (ICD-10-PCS; 2024-06-17)
PROC: 0W9930Z Drainage of Right Pleural Cavity with Drainage Device, Percutaneous Approach (ICD-10-PCS; principal; 2024-06-17 09:30)
PROC: 0JBC3ZX Excision of Pelvic Region Subcutaneous Tissue and Fascia, Percutaneous Approach, Diagnostic (ICD-10-PCS; 2024-06-18)
DX: J90 Pleural effusion, not elsewhere classified (principal); J98.11 Atelectasis; J06.9 Acute upper respiratory infection, unspecified; C55 Malignant neoplasm of uterus, part unspecified; I16.0 Hypertensive urgency; E66.01 Morbid (severe) obesity due to excess calories; I10 Essential (primary) hypertension; R73.03 Prediabetes; E87.6 Hypokalemia; Z79.899 Other long term (current) drug therapy

== ENCOUNTER → 2024-07-01 | Outpatient (CLI) | payer OTHER ==
[~2024-07-01] VITALS: Ht 170.2 cm; Wt 120.0 kg
[~2024-07-01] MED LIST changes: +ACET32TAB PO; +AMLO1TAB25 PO; +COLA100C5 PO; +LASI40TA9 PO; +LIDOCAINE 1% MDV 20ML VIAL As Ordered ONE; +LISI40TA4 PO; +MIDAZOLAM INJ 2MG/2ML VIAL As Ordered ONE; +MUCI120T PO; +NS (Normal Saline) 0.9% 1,000 ML IV SCH; +POTA-298 PO; +ceFAZolin 1GM VIAL As Ordered ONE; +ceFAZolin 2 GM/D5W 50 ML IV BAG As Ordered ONE; +ceFAZolin SOD 2 GM in IV 1 EA IV ONE; +fentaNYL 100 MCG/2 ML INJECTION As Ordered ONE
[2024-07-01 12:25] VITALS: TEMP 97.3
[2024-07-01] MEDS: ceFAZolin SODIUM 3 GM in DEXTROSE 5% (D5W) MINI-BAG PLU 100 ML IV ONE (13:12)
[2024-07-01 15:00] VITALS: BP 131/65; O2SAT 100
== END ==
LOC: M IRPRO 12:13
PROVIDERS: ATTEND General Practice
DX: C56.9 Malignant neoplasm of unspecified ovary (principal)
CPT/HCPCS: 36561; 99152; C1894; J0690; J1642; J2250; J3010

== ENCOUNTER → 2024-07-04 | Outpatient (CLI) | payer OTHER ==
[~2024-07-04] MED LIST changes: -LIDOCAINE 1% MDV 20ML VIAL As Ordered ONE; -MIDAZOLAM INJ 2MG/2ML VIAL As Ordered ONE; -NS (Normal Saline) 0.9% 1,000 ML IV SCH; +PROHANCE 279.3MG/ML 15ML VIAL As Ordered ONE; +PROHANCE 279.3MG/ML 5ML VIAL As Ordered ONE; -ceFAZolin 1GM VIAL As Ordered ONE; -ceFAZolin 2 GM/D5W 50 ML IV BAG As Ordered ONE; -ceFAZolin SOD 2 GM in IV 1 EA IV ONE; -fentaNYL 100 MCG/2 ML INJECTION As Ordered ONE
== END ==
LOC: M RAD 15:12
PROVIDERS: ATTEND General Practice
DX: C56.2 Malignant neoplasm of left ovary (principal); R90.82 White matter disease, unspecified
CPT/HCPCS: 70553; A9576; J1642

== ENCOUNTER → 2024-07-08 | Outpatient (CLI) | payer OTHER ==
[~2024-07-08] MED LIST changes: -PROHANCE 279.3MG/ML 15ML VIAL As Ordered ONE; +PROHANCE 279.3MG/ML 15ML VIAL ONE; -PROHANCE 279.3MG/ML 5ML VIAL As Ordered ONE; +PROHANCE 279.3MG/ML 5ML VIAL ONE
== END ==
LOC: M PLAIMG 09:15
PROVIDERS: ATTEND General Practice
DX: C56.2 Malignant neoplasm of left ovary (principal)

== ENCOUNTER 2024-09-08 13:42 | Emergency (ER) | payer OTHER ==
[~2024-09-08] VITALS: Ht 170.2 cm; Wt 120.9 kg
[~2024-09-08 13:42] MED LIST changes: +CALC1CAP PO; +FERR325T3 PO; +LIDO30CR18 TOP; +ONDA-84 PO; +POTA-151; +PROC10TA5 PO; -PROHANCE 279.3MG/ML 15ML VIAL ONE; -PROHANCE 279.3MG/ML 5ML VIAL ONE; +THERTAB52 PO
[2024-09-08 14:26] LABS: BASO % 0.7 % (0.0-1.0); HEMATOCRIT 28.3 % (36.0-47.0); HEMOGLOBIN 9.5 g/dl (12.0-15.5); LYMPH # 0.5 10^3/uL (1.5-5.0); LYMPH % 17.6 % (24.0-44.0); MEAN CORPUSCULAR HEMOGLOBIN 28.8 pg (27.0-33.0); MEAN CORPUSCULAR HGB CONC 33.6 g/dl (32.0-36.5); MEAN CORPUSCULAR VOLUME 85.8 fl (80.0-96.0); MONO # 0.1 10^3/uL (0.0-0.8); MONO % 3.8 % (2.0-8.0); NEUTROPHILS # 2.3 10^3/uL (1.5-8.5); NEUTROPHILS % 77.6 % (36.0-66.0); PLATELET COUNT, AUTOMATED 122 10^3/uL (150-450); WHITE BLOOD COUNT 2.9 10^3/uL (4.0-10.0)
[2024-09-08] MEDS ORDERED: ISOVUE-370 76% 100ML VIAL As Ordered ONE (14:39)
[2024-09-08 14:45] VITALS: BP 134/60
[2024-09-08 14:54] LABS: CALCIUM LEVEL 8.3 MG/DL (8.5-10.1); CREATININE FOR GFR 0.99 MG/DL (0.55-1.30); GLOMERULAR FILTRATION RATE 70.3 (>58); MAGNESIUM LEVEL 1.7 MG/DL (1.8-2.4); POTASSIUM SERUM 3.3 MMOL/L (3.5-5.1)
[2024-09-08 14:59] LABS: FREE T4 1.32 NG/DL (0.89-1.76); THYROID STIMULATING HORMONE 2.575 uIU/ML (0.55-4.78)
[2024-09-08] MEDS: NS (Normal Saline) 0.9% 1,000 ML IV ONE (15:18)
[2024-09-08] MEDS: POTASSIUM CHLORIDE 10MEQ SR TABLET PO ONE (15:18)
[2024-09-08] MEDS: MAG SULF 1GM/100ML (MAG RUN) 1 GM in IV 1 EA IV ONE (15:19)
[2024-09-08] MEDS ORDERED: HOLTER MONITOR XX (16:18)
[2024-09-08 16:57] VITALS: O2SAT 97
[2024-09-08 17:15] VITALS: TEMP 98.2
== END 2024-09-08 17:18 | disposition home or self-care (01) ==
LOC: M ED 13:42 → EDBD 13:42 → M ED 17:18
DX: R55 Syncope and collapse (principal); I10 Essential (primary) hypertension; Z85.43 Personal history of malignant neoplasm of ovary; Z91.09 Other allergy status, other than to drugs and biological substances; Z79.899 Other long term (current) drug therapy; Z79.810 Long term (current) use of selective estrogen receptor modulators (SERMs)
CPT/HCPCS: 70450; 71045; 71275; 80047; 80048; 83735; 84439; 84443; 84484; 85025; 93005; 93041; 94760; 96365; 96366; 99285; J3475; Q9967

== ENCOUNTER → 2024-10-01 | Outpatient (CLI) | payer OTHER ==
[~2024-10-01] MED LIST changes: +HOLTER MONITOR XX; +ISOVUE-370 76% 100ML VIAL As Ordered ONE
== END ==
LOC: M RAD 13:26
PROVIDERS: ATTEND Nurse Practitioner Family
DX: C56.2 Malignant neoplasm of left ovary (principal); Z51.11 Encounter for antineoplastic chemotherapy; J90 Pleural effusion, not elsewhere classified

== ENCOUNTER → 2025-03-07 | Outpatient (CLI) | payer OTHER ==
[~2025-03-07] MED LIST changes: +ISOVUE-370 76% 100 ML VIAL ONE; -ISOVUE-370 76% 100ML VIAL As Ordered ONE; +LISI40TA10 PO; -LISI40TA4 PO
== END ==
LOC: M PLAIMG 13:44
PROVIDERS: ATTEND Internal Medicine Medical Oncology
DX: C56.9 Malignant neoplasm of unspecified ovary (principal); J84.10 Pulmonary fibrosis, unspecified; K42.9 Umbilical hernia without obstruction or gangrene
CPT/HCPCS: 71260; 74177; Q9967